=== PATIENT | female | born 1940 | race Caucasian/White ===

== ENCOUNTER 2016-08-12 17:30 | Inpatient (IN) | payer MEDICARE, OTHER ==
[~2016-08-12] VITALS: Ht 157.5 cm; Wt 50.5 kg
--- NOTE | ~2016-08-12 | CON ---
PATIENT'S NAME: AMADOR RACHEL [facility] AGE: 75 Y [address] ROOM: [place] [id number] LOCATION: GICU ADMIT DATE: 08/12/2016 Consultation DISCHARGE DATE: FAMILY PHYSICIAN: PHYSICIAN, UNKNOWN ATTENDING PHYSICIAN: Jan Vilchis DATE OF CONSULTATION: 08/13/2016 CARDIOLOGY CONSULTATION REASON FOR CARDIOLOGY CONSULT: Hypotension and bradycardia. HISTORY OF PRESENT ILLNESS: This is a 75-year-old female, admitted from [facility] for what was believed to be a hypovolemic shock. She initially presented to the emergency department with complaints of weakness and has had decreased oral intake for about a week. The patient was directly admitted to [facility] and was found to be hypotensive and bradycardic. She was subsequently started on the Levophed drip as well as dopamine. At the time of this consult, she continues on the BiPAP and does continue to have complaints of shortness of breath. She denies chest pain or other signs or symptoms suggestive of coronary ischemia. Her cardiac history does include hypertension and atrial fibrillation as well as long-term anticoagulation with Coumadin. 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 She denies chest pressure, dizziness, palpitations, syncope. Overall just states "don't feel well" and her family states she has just had loss of energy recently. PAST MEDICAL HISTORY: 1. Hypertension. 2. Atrial fibrillation, chronic. 3. Long-term anticoagulation with Coumadin. 4. Previous history of failure to thrive about a year ago. 5. Pulmonary hypertension. 6. COPD. 7. Renal failure. 8. Chronic lymphocytic leukemia. 9. Anxiety and depression. FAMILY HISTORY: There is a positive history of cancer. Her father had lung cancer, but also did have heart disease. She also has a sister and a brother with heart disease. SOCIAL HISTORY: PATIENT'S NAME: AMADOR [facility] AGE: 75 Y [address] ROOM: [id number] [place] [id number] LOCATION: GICU ADMIT DATE: 08/12/2016 Consultation DISCHARGE DATE: FAMILY PHYSICIAN: PHYSICIAN, UNKNOWN ATTENDING PHYSICIAN: Jan Vilchis The patient is a former cigarette smoker. She smoked for a total of 50 years. She denies alcohol or illicit drug use. CURRENT MEDICATIONS: 1. Ipratropium bromide and albuterol sulfate inhaled every 4 hours. 2. Dopamine IV drip with titration protocol for bradycardia. 3. Levophed drip IV with titration parameters for blood pressure and hypotension. 4. Rocephin 1 g IV daily. 5. Daliresp 500 mcg p.o. daily. 6. Remeron 30 mg p.o. daily in the evening. MEDICATION ALLERGIES: Sulfadiazine causing hives. REVIEW OF SYSTEMS: A 12-point review of systems evaluated and negative except for those listed in the HPI. DIAGNOSTICS: CMS evaluation shows sodium of 144, potassium 5.6, BUN of 98, creatinine 2.6, and a glucose of 102. CBC evaluation shows a white blood cell count of 17.3, hemoglobin of 7.8, hematocrit 26.8, and a platelet of 217. PT/INR 24.8 and 2.2 respectively. Echocardiogram performed on 08/12/2016 showed an estimated left ventricular ejection fraction of 60%. She has severe mitral regurgitation as well as severe pulmonary hypertension with an RVSP of 70 mmHg. There is presence of a small pericardial effusion as well as pleural effusions. PHYSICAL EXAMINATION: VITAL SIGNS: Temperature 100.2, pulse 79, respirations 16, blood pressure 89/46, O2 saturation 92% on 60% FiO2 per BiPAP. The patient weighs 61.5 kg. SKIN: Pale, but warm and dry. EYES: Sclerae clear. No xanthelasmas. ENT: Oral mucosa is pink and moist. No carotid bruits noted. Does have the presence of jugular venous distention. CHEST: Respirations are even and slightly labored. Lung sounds are coarse throughout with noted expiratory wheeze. HEART: Irregular rate and rhythm. Normal S1, S2. She continues in an atrial fibrillation on a instructor painting. ABDOMEN: Soft and nontender. MUSCULOSKELETAL: Equal muscle strength to upper and lower extremities bilaterally against resistance. EXTREMITIES: Peripheral pulses are palpable. No clubbing or cyanosis noted. Does have trace lower extremity edema present. PATIENT'S NAME: AMADOR [facility] AGE: 75 Y [address] ROOM: [place] [id number] LOCATION: [facility] ADMIT DATE: 08/12/2016 Consultation DISCHARGE DATE: FAMILY PHYSICIAN: PHYSICIAN, UNKNOWN ATTENDING PHYSICIAN: Jan Vilchis PSYCH: Alert and oriented. Mood and affect are appropriate. IMPRESSION AND PLAN: Per Dr. Elena Shook: 1. Hypotension. Currently on IV vasopressor support and do recommend continuing that at this time. 2. Chronic atrial fibrillation with some episodes of bradycardia. 3. Acute kidney injury. 4. Severe pulmonary hypertension. 5. Severe mitral regurgitation. 6. Anemia. 7. Diastolic congestive heart failure, acute, with volume overload. She is currently in a [place] Heart Association Class IV with her noted JVD and fluid overload. We would consider another dose of IV Bumex if her nephrology consult feels it is appropriate. She still appears to be at a mild to moderate fluid overload state. We will continue to monitor and treat appropriately and watch her closely. Of note, she from her echocardiogram appears to be a possible candidate for a mitral clip, and we will continue to follow her as an outpatient for consideration for this procedure. Thank you for this consult. Thank you for allowing [facility] to interact in the care of this patient. CHUY CEDILLO APRN FOR MD SILVIANO FARMER/talita /[id number] d: 08/13/162006 t: 08/26/161720, CONSULTATION REPORT
--- NOTE | ~2016-08-12 | DS ---
PATIENT'S NAME: AMADOR RACHEL [facility] AGE: 75 Y [address] ROOM: [id number] [place], [place] [address] LOCATION: [facility] ADMIT DATE: 08/12/2016 Discharge Summary DISCHARGE DATE: 08/21/2016 FAMILY PHYSICIAN: Apolonia Penn MD ATTENDING PHYSICIAN: Jan Vilchis FINAL DIAGNOSES: 1. Cardiogenic shock. 2. Acute on chronic hypoxic respiratory failure. 3. Atrial fibrillation, bradycardic on admission. 4. Acute kidney injury, on stage 3 chronic kidney disease. 5. Iron-deficiency anemia. 6. Severe mitral regurgitation. 7. Acute congestive heart failure/cor pulmonale. 8. Chronic obstructive pulmonary disease. 9. Severe protein-calorie malnutrition. 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 HISTORY OF PRESENT ILLNESS: For details of admission, please see the history and physical dictated by Dr. Vilchis. LABORATORY DATA: On admission here, sodium 144, discharge 146; potassium on admit 5.7, at discharge 4.3; chloride on admission was 114, discharge 107; CO2 on admission was 19, discharge 34; BUN on admission was 100, discharge 40; creatinine on admission was 2.7, did gradually decline, at discharge was 1.2. Liver enzymes were normal. Phosphorus at discharge was 3. Magnesium at discharge was 2.7. Iron was 30, percent saturation was 10, vitamin B12 was 1014, folate 5.7, ferritin was 31.4. White blood cell count on admission was 16.8, got as high as 20.7, discharge 7.7; hemoglobin on admission was 7.8, she fluctuated throughout the hospital stay, was 6.7 on August 15, 2016, most prior to discharge 7.1. Urinalysis on admission did not show any evidence of infection. Blood cultures, urine cultures, and stool culture were negative. RADIOLOGY STUDIES: Chest x-ray on admission showed evidence of pulmonary congestion. Ultrasound of her abdomen showed that she did have calcified gallbladder wall. She had bilateral pleural effusions. HOSPITAL COURSE: The patient was admitted in, who was a transfer from [facility] to [facility]. She had presented in with shock and was hypotensive and bradycardic. She was admitted into the intensive care unit. She was put on a Levophed drip. Cardiology was asked to see her as well as Nephrology. They did obtain the echo done in [place]. She was felt to be in some degree of congestive heart failure, but due to her acute kidney injury, we managed her with cautious diuresis of IV Bumex. It was known that she had severe mitral regurgitation and significant pulmonary hypertension. She did diurese and then we did give her back albumin. GI was consulted because when she presented to [place], her hemoglobin was 3. It was felt PATIENT'S NAME: AMADOR RACHEL [facility] AGE: 75 Y [address] ROOM: [id number] [place], [place] [address] LOCATION: [facility] ADMIT DATE: 08/12/2016 Discharge Summary DISCHARGE DATE: 08/21/2016 FAMILY PHYSICIAN: Apolonia Penn MD ATTENDING PHYSICIAN: Jan Vilchis that this needed to be further evaluated. The decision was made that she was to have an EGD and colonoscopy on August 18, 2016. Dr. De La Cruz was consulted from oncology standpoint because she did have a history of CLL. Her heart rates did improve, that she could be taken off the Levophed. She had been on Cardizem on admission and this was held. She had been on anticoagulation, which was held as well. 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 Colon was poorly prepped, so the complete colonoscopy could not be performed. She was felt to be safe to be transferred out of the intensive care unit on 08/18/2016, at which time, the hospitalist program did take assume care. Please see the note dictated by Dr. Arlin Goncalves. We continued to monitor. She did seem to be more compensated. Her hemoglobins, however, did seem to continue to fluctuate up and down, her kidney function though continued to improve. On the morning of 08/21/2016, it was discussed with her that she may want to consider repeat colonoscopy with a better prep. She declined this option as she did not want to have another colonoscopy. During the hospitalization, there were extended conversations with her and with her son by numerous physicians discussing the risk of ongoing anticoagulation in light of the fact that not knowing to completely know for sure if she had any colonic abnormality. She did voice understanding of that. Her CHADS2-VASc score was calculated to be 4, which gave her 4.8% risk of having an embolic event. The decision was made to place her on an aspirin. Her and her son did voice understanding of that, and that any further decisions regarding resuming Coumadin would depend upon her hemoglobin. They did agree to have Home Health follow so that laboratory could be obtained. She had been wearing oxygen at home at night prior to admission. Her O2 saturation on room air was 87% on the day of discharge. Therefore, the paperwork was completed for her to have home O2. I did speak with Dr. Penn regarding this discharge. I also spoke with Dr. Cordero. We did discuss the fact that she is not on any antiarrhythmic or rate limiting drugs due to the fact that her heart rates have been in the 70s to 80s off medication. ROSS Matthew RUSH MD LAW/modl /[id number] CC: MD Jan Ramos MD PATIENT'S NAME: AMADOR RACHEL [facility] AGE: 75 Y [address] ROOM: [place] [address] LOCATION: [facility] ADMIT DATE: 08/12/2016 Discharge Summary DISCHARGE DATE: 08/21/2016 FAMILY PHYSICIAN: Apolonia Penn MD ATTENDING PHYSICIAN: Jan Vilchis MD d: 08/21/16 2118 t: 09/03/16 1043, DISCHARGE SUMMARY
--- NOTE | ~2016-08-12 | CON ---
PATIENT'S NAME: AMADOR RACHEL [facility] AGE: 75 Y [address] ROOM: [address] [place], [place] [address] LOCATION: GICU ADMIT DATE: 08/12/2016 Consultation DISCHARGE DATE: FAMILY PHYSICIAN: PHYSICIAN, UNKNOWN ATTENDING PHYSICIAN: Jan Vilchis DATE OF CONSULTATION: 08/13/2016 REASON FOR CONSULTATION: SHER. CHIEF COMPLAINT: SHER and volume overload. HISTORY OF PRESENT ILLNESS: A 75-year-old lady with history of CLL being managed conservatively; atrial fibrillation, on long-term anticoagulation with warfarin; and COPD with chronic hypoxic/hypercapnic respiratory failure with chronic home oxygen dependence, transferred to [facility] with severe anemia and fluid overload. She was not feeling well for the last couple of days. Was severely weak, had an earlier admission with failure to thrive and anorexia as well in 2016. When she went to [facility], she was found to have severe anemia with hemoglobin in the 3 range. She got 2 units of blood transfusion over there as well as got couple of liters of normal saline as her blood pressure was found to be low. However, following that she was severely short of breath and was requiring BiPAP, and the patient was transferred to [facility] for further management and care. As per the paper chart briefly when patient came here, the patient's hemoglobin was 9, however, patient was found to have significant volume overload, and was given 2 mg of Bumex overnight with improvement in her respiratory status slightly, and she made about 1400 mL of urine overnight. During my evaluation, she is still short of breath, was on BiPAP, cannot speak in full sentences. Her blood pressure, however, is really marginal. Blood pressure is ranging from 80 to 100 over 40 to 50. She also has history of severe pulmonary hypertension and severe MR as per the previous echocardiography done at outside hospital. She denied any nausea, vomiting, or diarrhea. Review of the chart shows the creatinine in 2016 was 0.7, and on admission, it was 2.7, improved to 2.6 in the morning. REVIEW OF SYSTEMS: GENERAL: No fever. No chills or rigor. HEENT: No sore throat. No sinus congestion. CVS: No chest pain. Severe exertional shortness of breath. 1+ leg swelling. RESPIRATORY: Significant shortness of breath. Occasional cough. Some wheezing. GENITOURINARY: No pain with urination. No increased frequency. No nocturia. GASTROINTESTINAL: No abdominal pain. No abdominal distention. No nausea or vomiting. NEUROLOGIC: No weakness. No seizures. SKIN: No rash. No itching. ALLERGIES: No seasonal allergy. No hayfever. ENDOCRINE: No heat intolerance. No cold intolerance. PSYCHIATRIC: No sadness. No crying spells. No history of panic attack. PATIENT'S NAME: AMADOR RACHEL [facility] AGE: 75 Y [address] ROOM: [id number] [place], [place] [address] LOCATION: [facility] ADMIT DATE: 08/12/2016 Consultation DISCHARGE DATE: FAMILY PHYSICIAN: PHYSICIAN, UNKNOWN ATTENDING PHYSICIAN: Jan Vilchis PAST MEDICAL HISTORY: 1. COPD with chronic hypoxic/hypercapnic respiratory failure, on home oxygen. 2. Atrial fibrillation. 3. Chronic atrial fibrillation. 4. Severe pulmonary hypertension. 5. Atrial fibrillation, on long-term anticoagulation. 6. Severe MR. PAST SURGICAL HISTORY: Noncontributory. FAMILY HISTORY: Both parents had significant cardiac history. Father of [place] at age 59. Mother in a train accident. Two brothers also who had significant cardiac history. SOCIAL HISTORY: , lives near [place]. A 40 pack-year history of smoking and stopped about 10 years back. No history of alcohol use. HOME MEDICATIONS: 1. Albuterol 1 puff inhaler q.4 hours p.r.n. 2. Alprazolam 0.5 mg daily. 3. Diltiazem ER 180 mg p.o. daily. 4. Fluticasone and salmeterol 1 puff inhalation b.i.d. 5. Ipratropium and albuterol 1 vial inhalation q.6 hours p.r.n. for shortness of breath. 6. Lisinopril 5 mg tablet p.o. daily. 7. Mirtazapine 30 mg p.o. at bedtime. 8. Artificial tears p.r.n. for dry eyes. 9. Roflumilast 500 mcg p.o. daily. 10. Warfarin 5 mg p.o. 4 days a week and 7.5 mg 3 days a week. PHYSICAL EXAMINATION: VITAL SIGNS: Blood pressure 80s to 100s over 40s to 50s, pulse is 76, respiratory rate 18, and saturation 90 to 92% on BiPAP. GENERAL: An elderly female, lying in bed, on BiPAP in significant respiratory distress. HEENT: Positive JVD. No thyromegaly or lymphadenopathy. Moist mucous membranes bilaterally. PERRLA. EOMI. CVS: S1 and S2 plus irregular rate and rhythm. Pansystolic murmur at the apex. No rub. CHEST: Significant rales bilaterally, especially towards the base, occasional wheeze. ABDOMEN: Soft, nontender, and nondistended. Bowel sounds present. EXTREMITIES: No cyanosis, clubbing, or jaundice, 1+ dependent edema. MUSCULOSKELETAL: No limitation of range of motion. SKIN: No pallor, cyanosis, or icterus. BAND TUMBLER: Alert and oriented x3. Makes logical conversation. No gross focal neurological deficits. PATIENT'S NAME: AMADOR RACHEL [facility] AGE: 75 Y [address] ROOM: [place] [address] LOCATION: [facility] ADMIT DATE: 08/12/2016 Consultation DISCHARGE DATE: FAMILY PHYSICIAN: PHYSICIAN, UNKNOWN ATTENDING PHYSICIAN: Jan Vilchis ASSESSMENT AND PLAN: 1. Acute kidney injury, possibly cardiorenal syndrome type 1 with significant volume overload and decompensated heart failure. The patient has history of severe pulmonary hypertension and significant mitral regurgitation in the past which possibly has predisposed her to get into volume overload with 2 units of PRBCs and some volume resuscitation given at outside hospital. The patient got slightly better with 2 mg of Bumex overnight. We will give another 2 mg of Bumex this morning along with metolazone 5 mg orally, and we will closely monitor the urine output and renal function at this point. The patient's blood pressure is from marginal, will possibly need a vasopressor therapy especially with diuretic treatment. 2. Decompensated heart failure, currently fluid overloaded. Cardiology on board. Has significant pulmonary hypertension and mitral regurgitation in the past. We will continue diuresing her and rest as per Cardiology. 3. Atrial fibrillation, on long-term chronic anticoagulation. We will defer the management as per Cardiology. 4. Hypertension. We will hold lisinopril for now. Blood pressure is marginal. We will hold the diltiazem as well. The patient will be diuresed for now. May need vasopressor therapy to support hemodynamics during diuresis. 5. The patient has been educated about her renal failure and her current renal function. Avoid nephrotoxins. Maintain hemodynamic stability to mean arterial pressure of at least more than 60. No NSAIDs or any rash dasia at this point. Thank you for allowing me to participate in this patient's care. We will closely monitor the patient's progress along with you. JORDANEKH JONY MCMILLAN MD /modl /[id number] d: 08/13/161758 t: 08/15/162133, CONSULTATION REPORT
--- NOTE | ~2016-08-12 | CON ---
PATIENT'S NAME: KIMBERLEY RACHEL [facility] AGE: 75 Y [address] ROOM: [id number] [place], [place] [address] LOCATION: [facility] ADMIT DATE: 08/12/2016 Consultation DISCHARGE DATE: FAMILY PHYSICIAN: PHYSICIAN, UNKNOWN ATTENDING PHYSICIAN: Jan Vilchis REFERRING PHYSICIAN: CULLEN SOLIMAN MD This is a consult to Dr. Vilchis. Kimberley Rachel is a 75-year-old woman with chronic lymphocytic leukemia and profound uncharacterized anemia. HISTORY OF PRESENT ILLNESS: History of present illness is obtained from the patient whose history is of dubious veracity; her son; review of the records forwarded by our colleagues in [place]; and review of the current and old [facility] record. There may be some lacuna in our knowledge. Mrs. Rachel was in her normal state of health until early August 2016. [place] [facility]. The patient had worn chronic oxygen at night and had always worn oxygen for 3 to 4 years. The patient has not needed a cane or a walker. She has chronic orthopnea and has to prop herself up with pillows at night. She developed dyspnea on exertion if she walked 100 yards. However, she could walk through the grocery store, clean the house, cook, clean, drive, and garden. In early August 2016, the patient became fatigued and anorexic. She developed progressive wheezing. Her chronic cough productive of a tablespoon per day of yellowish sputum increased. The patient developed tremors and rigors and could not walk. She called her son, who transported her to the emergency room in [place], [place]. On 08/11/2016, in the [facility], the white blood cell count was 10,500 with 47% segs and 43% lymphocytes, the hemoglobin was 3.3 g/dL, the MCV 86, and the platelets 257,000. A general chemical profile was remarkable for a potassium of 6.1 mEq/L, a BUN of 115 mg/dL, a creatinine of 3 mg/dL, an albumin of 2.6 g/dL, and a NT-proBNP of 4555 pg/mL. The iron was 13, the TIBC was 361 mcg per dL, and the percentage saturation was 4%. The ferritin was 23 ng/mL. The TSH was 3.447 uIU/mL. The urinalysis was unremarkable. The patient received 2 units of packed red blood cells and her hemoglobin kane to 5.1 g/dL. The patient was transferred to the [facility] on Dr. Vilchis, Pulmonary Service. At the [facility], the urinalysis was just remarkable for 250/ul of blood, there were PATIENT'S NAME: KIMBERLEY RACHEL [facility] AGE: 75 Y [address] ROOM: [id number] [place], [place] [address] LOCATION: [facility] ADMIT DATE: 08/12/2016 Consultation DISCHARGE DATE: FAMILY PHYSICIAN: PHYSICIAN, UNKNOWN ATTENDING PHYSICIAN: Jan Vilchis 10-20 rbc's per high power field, and 0-2 wbc's per high-power field with rare bacteria. A Dowling catheter was in place. The white count was 16,800, the hemoglobin was 7.8 g/dL, the MCV was 90, and the platelets were 247,000. The patient had 46% segs and 50% lymphocytes. The CMS revealed the potassium was 5.7 mEq/L, the BUN was 100 mg/dL, creatinine 2.7 G/dL. The albumin was 2.9 g/dL. The estimated GFR was 17 mL/min. The patient has gradually improved. Nephrology and Cardiology have been involved in her care. The patient's vital signs have been stabilized. The shock has been stabilized since her admission. Intravenous vasopressors were initiated as were diuretics for her diastolic congestive heart failure. Her acute kidney failure was felt to be due to a cardiorenal syndrome with decompensated heart failure. Mrs. Rachel has chronic lymphocytic leukemia, which was first documented in early 2014. The patient was seen at the [facility] in October of 2014. The patient has not required any treatment for her chronic lymphocytic leukemia. The patient is unaware she has been anemic and does not know what the anemia has been attributed to. Review of the old records reveals that on 08/21/2015, when the patient was hospitalized at [facility], the white count was 10,000, the hemoglobin 9, the MCV 95, the platelets 179,000 with 33% segs, and 32% lymphocytes. ACTIVE MEDICAL PROBLEMS (CHRONIC AND DIAGNOSED): 1. CLL, first diagnosed in 2014. The patient has been seen in Hematology- Oncology consultation at the [facility] in [place] in October of 2014 and no therapy has been recommended. The patient does not know if any tests were done to gauge her prognosis and does not recall returning to [place] for surveillance. 2. Severe pulmonary hypertension, moderate tricuspid regurgitation, severe right and left atrial dilation noted on echocardiogram on 12/18/2001. 3. Atrial fibrillation with controlled ventricular response is noted in 2001. 4. Chronic obstructive lung disease noted in 2016. This was hypoxemic and hypercarbic respiratory failure. The patient has used oxygen at night more recently and has used continuous oxygen for 3 to 4 years. 5. Anxiety/depression. 6. Porcelain gallbladder noticed in 2016. The patient was too fragile to be a surgical candidate. 7. 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 8. Tobacco use. The patient smoked 1 pack per day of [employer] cigarettes but has abstained since 2006. 9. Minimal splenomegaly. The spleen was 11.74 on an ultrasound of the abdomen today. PATIENT'S NAME: KIMBERLEY RACHEL [facility] AGE: 75 Y [address] ROOM: [id number] [place], [place] [address] LOCATION: [facility] ADMIT DATE: 08/12/2016 Consultation DISCHARGE DATE: FAMILY PHYSICIAN: PHYSICIAN, UNKNOWN ATTENDING PHYSICIAN: Jan Vilchis ACUTE MEDICAL ILLNESS (RESOLVED) PAST SURGERIES, INJURIES: 1. [id number]: G2, P2, AB2. 2. 1996 - Left humerus fracture. The patient did not report to a physician for evaluation. 3. 2013 - Bronchoscopy. 4. 2011 - Right and left cataract extraction. 5. 2014 - Hospitalization for cellulitis and chronic obstructive lung disease exacerbation and pneumonia. 6. 06/2016 - Retinal hemorrhage. MEDICATIONS UPON ADMISSION: 1. Albuterol. 2. Alprazolam. 3. Diltiazem. 4. Fluticasone/salmeterol inhaler. 5. Ipratropium/albuterol sulfate inhaler. 6. Lisinopril. 7. Mirtazapine. 8. Artificial tears. 9. Roflumilast. 10. Warfarin. ADVERSE REACTIONS TO MEDICATIONS, TRANSFUSIONS, ALLERGIES: 1. Sulfadiazine led to urticaria. 2. The patient recently had packed red blood cells transfusions in [place] [facility] but never before. TOBACCO: Abstain since 2006, one pack per day of Adilson for 45 years prior to that. ALCOHOL: One beer a month. CAFFEINE: None. IMMUNIZATIONS: 1. Positive influenza virus vaccine. 2. Positive pneumococcal vaccine. 3. Positive tetanus toxoid booster. 4. Negative varicella zoster virus vaccine. FAMILY HISTORY: Negative for cancer or hematologic disorders. PATIENT'S NAME: KIMBERLEY RACHEL [facility] AGE: 75 Y [address] ROOM: [id number] [place], [place] [address] LOCATION: [facility] ADMIT DATE: 08/12/2016 Consultation DISCHARGE DATE: FAMILY PHYSICIAN: PHYSICIAN, UNKNOWN ATTENDING PHYSICIAN: Jan Vilchis SOCIAL HISTORY: The patient was born in [place], [place], [place] [facility] [place]. She graduated from high school in [place]. 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 The patient is . She is retired. She has a son in [place], who is disabled, and another son in [place]. REVIEW OF SYMPTOMS: The patient had about one week of diarrhea and some heartburn. She had mild nocturia and rare incontinence. PHYSICAL EXAMINATION: VITAL SIGNS: Pulse 84 and regular, blood pressure 100/50, respiratory rate 18, temperature 98.9, height 62 inches, weight 65 kg (143 pounds), BMI 26.2 kg/m2. GENERAL: A well-developed, cachectic, 75-year-old, female, in no acute distress, oxygen by nasal cannula is being administered. HEENT: Edentulous. LYMPH NODES: None palpable. NECK: Without JVD or carotid bruits. SKIN: Chan angiomas. CHEST: Decreased breath sounds bilaterally. CV: Decreased S1, S2. No murmurs, bruits, or adventitious sounds. BREASTS: No masses. ABDOMEN: No masses, tenderness, or organomegaly. GENITALIA AND RECTAL: Dowling catheter in place. EXTREMITIES: Compression device in place on both legs. Bony deformity left humerus. IMPRESSION: 1. A 75-year-old woman with a history of chronic lymphocytic leukemia, apparently early and never treated, prognostic markers unknown, presents for evaluation and therapy of profound anemia associated with fatigue and transient diarrhea. The hemoglobin was 3.3 g/dL and indices were normocytic, though the MCH and MCHC were low. The anemia was present (9 g/dL) on 08/21/2015. The patient has an estimated GFR consistent with chronic kidney disease 4 on admit, down from the GFR of 60 mL/minute last year. The patient has chronic protein-calorie malnutrition, minimal echogenicity throughout the right renal cortex of questionable significance, porcelain gallbladder, (known for 1 year but not felt to be a physiologic surgical candidate). There is no evidence of an antibody on blood typing. 2. Normocytic anemia, cause still unclear. 3. Anemia, seems out of proportion to the chronic lymphocytic leukemia, and there is no evidence of a warm antibody on blood typing. RECOMMENDATIONS: PATIENT'S NAME: KIMBERLEY RACHEL [facility] AGE: 75 Y [address] ROOM: [id number] [place], [place] [address] LOCATION: [facility] ADMIT DATE: 08/12/2016 Consultation DISCHARGE DATE: FAMILY PHYSICIAN: PHYSICIAN, UNKNOWN ATTENDING PHYSICIAN: Jan Vilchis Diagnostic: 1. Hemoccult testing of the stools x3. 2. CBC with reticulocyte count. 3. ESR. 4. LDH. 5. Vitamin B12. 6. Folate. 7. Iron/TIBC. 8. Ferritin. 9. Prealbumin. 10. The profiling machine setup operator has been consulted. In a patient this age, with this degree of cachexia, and this degree of anemia, endoscopy studies are warranted even if the stools are Hemoccult negative. TREATMENT: No change at this point. PATIENT EDUCATION: 1. Made the point it is not clear from the current information why she has anemia. 2. Made the point, it is unlikely her anemia is related to her chronic lymphocytic leukemia. We will get the records from our colleagues at the [facility] in [place], [place]. MD PAGE OBRIENB/modl /[id number] CC: MD Elena Mariee MD Atam Mehdiratta, MD Apolonia L Shackleton, MD d: 08/17/16 0225 t: 08/18/16 1252, CONSULTATION REPORT
--- NOTE | ~2016-08-12 | HP ---
PATIENT'S NAME: AMADOR RACHEL [facility] AGE: 75 Y [address] ROOM: [id number] [place], [place] [address] LOCATION: [facility] ADMIT DATE: 08/12/2016 History & Physical DISCHARGE DATE: FAMILY PHYSICIAN: PHYSICIAN, UNKNOWN ATTENDING PHYSICIAN: Jan Vilchis DATE OF SERVICE: 08/18/2016 CONSULTATION/HISTORY AND PHYSICAL The Hospitalist Service was consulted by Dr. Ch to assume primary attending. HISTORY OF PRESENT ILLNESS: Ms. Rachel is a 75-year-old female, who was admitted here after transfer from [facility]. She presented there after a couple of weeks of significant weakness with decreased oral intake for at least a week also. When she arrived there, she was extremely anemic with a hemoglobin of 3. She was transfused with 2 units of packed red cells. She was also given IV fluid boluses for low blood pressure. She arrived here at [facility]. Dr. Vilchis admitted her to the ICU with hypotension and atrial fibrillation with slow ventricular response. She was given dopamine and Levophed. Since she has been in the hospital, there was a consult of Cardiology. On echocardiogram done at [place] on 08/12/2016, she had severe mitral regurgitation, severe pulmonary hypertension with a right ventricular systolic pressure of 70, small pericardial effusion as well as pleural effusions. Because of her hypotension, she was continued on vasopressin, however, she was also fluid overloaded with chronic atrial fibrillation at low heart rate. Dr. Mark of Nephrology was consulted. She has been treated with diuretics cautiously because of her elevated creatinine, which was a maximum of about 2.7. At one point, diuretics were held in favor of giving some albumin. However, she remained severely dyspneic and loop diuretics were resumed. Her renal function is improving and Dr. Mark continues to follow her. Dr. Rodriguez of Gastroenterology was consulted around August 14 for her severe anemia and she will go for an EGD this morning. Her iron studies were obtained after transfusion here on August 15, but did show iron of 30, TIBC 290, and iron saturation of 10%. LDH was 127. Her vitamin B12 was greater than 1000. Folate was 5.7. She apparently has never had a colonoscopy in the past and has a history of calcified gallbladder. Gallbladder ultrasound here does show gallstones in the liver, bile ducts visualized, head and body of the pancreas and left kidney were normal in that study. 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 I PATIENT'S NAME: WILSON [facility] AGE: 75 Y [address] ROOM: [id number] [place], [place] [address] LOCATION: [facility] ADMIT DATE: 08/12/2016 History & Physical DISCHARGE DATE: FAMILY PHYSICIAN: PHYSICIAN, UNKNOWN ATTENDING PHYSICIAN: Jan Vilchis will discuss the findings of the EGD and gallbladder ultrasound with Dr. Rodriguez after her test, for which she has gone down for at this time. Hematology/Oncology was consulted also around 08/14/2016 for her history of chronic lymphocytic leukemia. Prior to this, she has not received any chemotherapy and CLL has been relatively benign. She thinks she may have had this for about 8 years. The patient reports to me that she is still dyspneic on exertion at this time. She reports that she has had about 40-pound weight loss in the past 6 months. During this hospitalization since August 12, she has had minimal p.o. intake. She had been started on clears and the last night she reports she did have some cereal. Her prealbumin on 08/17/2016 was 11. PAST MEDICAL HISTORY: 1. Chronic lymphocytic leukemia. 2. Chronic kidney disease. 3. COPD with O2 requirement at home for the past 3 to 5 years. 4. Pulmonary hypertension. 5. Anxiety. 6. Failure to thrive. 7. Atrial fibrillation, on chronic warfarin therapy. 8. Depression. 9. Smoker. She has approximately 50 pack year history of smoking. She thinks she quit around age 65, although she is unclear about that. 10. Iron deficiency anemia. PAST SURGICAL HISTORY: Bronchoscopy for unclear reasons. Again, no history of GI endoscopies, upper or lower. SOCIAL HISTORY: Approximately [id number] history of smoking. No illicit drug use. Homeless is as documented in the chart. FAMILY HISTORY: Father with lung cancer, but of heart attack. Her mother had heart disease, but in an accident. ALLERGIES: SULFASALAZINE. MEDICATIONS: Her current medications include; 1. Remeron 30 mg at h.s. PATIENT'S NAME: WILSON [facility] AGE: 75 Y [address] ROOM: [id number] [place], [place] [address] LOCATION: [facility] ADMIT DATE: 08/12/2016 History & Physical DISCHARGE DATE: FAMILY PHYSICIAN: PHYSICIAN, UNKNOWN ATTENDING PHYSICIAN: Jan Vilchis 2. Natural Tears both eyes p.r.n. 3. Daliresp 500 p.o. daily. 4. ProAir inhaler q.4 hours p.r.n. 5. DuoNebs 4 times a day. 6. Rocephin 1 gram daily, tonight's dose will be #7. REVIEW OF SYSTEMS: As in the HPI. She has had significant weight loss, fatigue, weakness, and decrease intake. She has had significant swelling and also had somewhat of a chronic cough, but no purulent sputum at this time. The remainder of 10-point review of systems is positive for chronic depression, but no increase recently. No other positive findings at this time. PHYSICAL EXAMINATION: VITAL SIGNS: Temperature 98.6, pulse 79, respirations 20, and blood pressure 99/54, at 3 a.m. it was 102/57. GENERAL: This is a cachectic, pale, and ill-appearing elderly female, who appears comfortable, resting in a chair in her ICU room. HEENT: Normocephalic and atraumatic. She has significant temporal wasting. She is wearing glasses. Her pupils are slightly unequal with both being postsurgical, the right is slightly greater than the left. Lens implants apparent. The palpebral conjunctivae are pale without exudate. Oropharynx is clear with moist mucous membranes. There are upper and lower dentures. NECK: Supple without lymphadenopathy or thyromegaly. LUNGS: Clear to auscultation and percussion except for diminish in the bases, right greater than left with dullness to percussion also on the base of right greater than left. There is no wheezing or other adventitious sound appreciated. CARDIOVASCULAR: Regular rate and rhythm with no appreciable murmur, rub, or gallop. ABDOMEN: Little bit doughy, full, but soft. Normoactive bowel sounds. Nontender. No tenderness in the right upper quadrant. No masses appreciated. EXTREMITIES: No cyanosis, clubbing, or edema. She has 1 to 2+ posterior tibialis pulses that are equal bilaterally. There are SCDs in place bilaterally. SKIN: Warm. Dry. She has some open comedones on her face, not other significant rash. EXTREMITIES: She has significant muscle wasting of upper and lower extremities. Motor strength appears to be normal and symmetric both in the upper and lower extremities. NEURO: Her affect is normal. She is alert and oriented to person, place, and time. LABORATORY DATA: From today. Sodium 147, potassium 4.3, chloride 108, CO2 of 29, BUN is 37, PATIENT'S NAME: AMADOR RACHEL [facility] AGE: 75 Y [address] ROOM: [id number] [place], [place] [address] LOCATION: [facility] ADMIT DATE: 08/12/2016 History & Physical DISCHARGE DATE: FAMILY PHYSICIAN: PHYSICIAN, UNKNOWN ATTENDING PHYSICIAN: Jan Vilchis creatinine 1.3, and glucose is 69. White blood cell 7.7, hemoglobin 7.9, hematocrit 28.2, platelets 126,000, absolute neutrophil count of 3.2, 42% granulocytes, 52% lymphocytes, and 4% monos. Her stool for Hemoccult was positive on the 12th and on the 12th she had a prealbumin of 11. Iron studies as above in the HPI. Ultrasound as above in the HPI. ASSESSMENT AND PLAN: This is a chronically ill 75-year-old female with a long history of smoking. 1. Admitted with shock and valvular congestive heart failure. Her shock is resolved. 2. Severe mitral regurgitation, evaluated congestive heart failure, this is improving on daily doses of diuretics. She will need outpatient evaluation for her MR. Cardiology consult is appreciated. 3. Chronic atrial fibrillation, on chronic anticoagulation therapy. Anticoagulation therapy has been held during the hospitalization due to her severe anemia as was her rate control with her episodes of bradycardia. She was treated with digoxin earlier in the hospitalization. She is not getting this on a daily basis at this time. 4. Chronic obstructive pulmonary disease with chronic oxygen requirement and dyspnea. She continues on roflumilast 500 mcg p.o. daily. We will continue this; she is still on O2 via nasal cannula; she is stable in terms of her chronic obstructive pulmonary disease. 5. Severe anemia, the cause of which is not apparent right now thus her diagnostic workup with EGD and colonoscopy. We will have to have pursue issue of gallbladder malignancy, which I will discuss with Dr. Rodriguez and consider a surgical consult. 6. Chronic lymphocytic leukemia. I appreciate the Oncology consult. We will continue to monitor her counts, right now her lymphocyte count is elevated, but she has a normal total white count. She is asymptomatic in this regard. 7. Severe protein-calorie malnutrition- Add supplements, nutrition consult. 8. Deep vein thrombosis prophylaxis with SCDs, which are in place. DISPOSITION: She will be transferred to [facility] when there is a bed available. Thank you very much for inviting me to participate in the care of this kind lady. ARON LATIF MD LM/talita PATIENT'S NAME: AMADOR RACHEL [facility] AGE: 75 Y [address] ROOM: [id number] [place] [address] LOCATION: [facility] ADMIT DATE: 08/12/2016 History & Physical DISCHARGE DATE: FAMILY PHYSICIAN: PHYSICIAN, UNKNOWN ATTENDING PHYSICIAN: Jan Vilchis /[id number] D: [id number] T: [id number] HISTORY & PHYSICAL
--- NOTE | ~2016-08-12 | CON ---
PATIENT'S NAME: AMADOR RACHEL [facility] AGE: 75 Y [address] ROOM: [id number] [place] [address] LOCATION: GICU ADMIT DATE: 08/12/2016 Consultation DISCHARGE DATE: FAMILY PHYSICIAN: PHYSICIAN, UNKNOWN ATTENDING PHYSICIAN: Jan Vilchis DATE OF CONSULTATION: 08/15/2016 REFERRING PHYSICIAN: CULLEN SOLIMAN MD REASON FOR CONSULTATION: Anemia. HISTORY OF PRESENT ILLNESS: This is a very pleasant 75-year-old female, who was admitted from [facility] for what was believed to be hypovolemic shock. The patient presented to the outside emergency room facility with complaints of weakness and dehydration. The patient was found to be hypotensive and bradycardic. She was admitted to intensive care for blood pressure support. The patient does have a cardiac history including hypertension as well as atrial fibrillation, on long-term anticoagulation being Coumadin. The patient also states that she has a history of iron deficiency anemia, though denies any workup including upper endoscopy or colonoscopy. The patient denies any chest pain, chest pressure, shortness of breath, fever, chills, night sweats, or weight loss. She does state that she has had "loss of energy and generally "does not feel well." We were asked to see in consultation for her anemia. PAST MEDICAL HISTORY: Hypertension, atrial fibrillation, chronic on long-term anticoagulation being Coumadin, previous history of failure to thrive, pulmonary hypertension, COPD, renal failure, chronic lymphocytic leukemia, anxiety and depression, history of calcified gallbladder. PAST SURGICAL HISTORY: Lung surgery. No history of upper endoscopy or colonoscopy. SOCIAL HISTORY: The patient is a former cigarette smoker. Denies any alcohol or illicit drug use. FAMILY HISTORY: Positive history for cancer. The patient's father had lung cancer and heart disease. The patient's sister and brother both have heart disease. ALLERGIES: SULFADIAZINE. CURRENT MEDICATIONS: PATIENT'S NAME: AMADOR RACHEL [facility] AGE: 75 Y [address] ROOM: [id number] [place] [id number] LOCATION: GICU ADMIT DATE: 08/12/2016 Consultation DISCHARGE DATE: FAMILY PHYSICIAN: PHYSICIAN, UNKNOWN ATTENDING PHYSICIAN: Jan Vilchis Please refer to the medication administration record. REVIEW OF SYSTEMS: A 10-point review of systems was completed. All were negative except for those identified in the history of present illness. PHYSICAL EXAMINATION: GENERAL: A pleasant, 75-year-old female, who appears to be in no acute distress. VITAL SIGNS: Temperature 97.7, pulse of 92, respirations 20, blood pressure 94/45, oxygen saturations 92% on 3 L nasal cannula. SKIN: [place], warm, and dry. No jaundice. HEENT: Head is normocephalic and atraumatic. Pupils are equal, round, and reactive to light. Sclerae are clear. Nonicteric. Oral mucosa is pink and moist. No thyromegaly. NECK: Soft and supple. CARDIOVASCULAR: Regular, normal S1, S2. RESPIRATORY: Respirations even and unlabored. LUNGS: Clear to auscultation. ABDOMEN: Soft, round, nontender, nondistended. Bowel sounds positive x4 quadrants. MUSCULOSKELETAL: No muscle weakness or atrophy. EXTREMITIES: No clubbing or cyanosis. NEUROLOGICAL: Grossly nonfocal. LABORATORY DATA AND DIAGNOSTICS: White blood cell count 9.2, hemoglobin on admission was 7.8 with a decrease this morning at 6.7, hematocrit of 23.5, platelet of 141. Chemistry panel includes a glucose of 69, BUN of 63, creatinine 1.7, sodium 148, potassium 4.9, chloride 114, CO2 of 25, calcium of 7.6, albumin 2.4, AST 11, ALT of less than 10, alkaline phosphatase of 61, total bilirubin 0.5, magnesium 2.9. Pro- time 17.7, INR is 1.6. ASSESSMENT AND PLAN: Again, this is a very pleasant 75-year-old female, who was recently admitted with questionable hypovolemic shock. The patient has been doing well, though we were asked to see in consultation for anemia. 1. The patient endorses a history of iron deficiency anemia. At this time, we will recommend to undergo an upper endoscopy and colonoscopy for further evaluation of GI causes of anemia. This will be completed as the patient will be given preparation for the procedure. Continue monitoring the patient's hemoglobin and hematocrit daily is also recommended. Further recommendations to be given status post upper endoscopy and colonoscopy. 2. Calcified gallbladder. In review of the patient's record, she does have PATIENT'S NAME: AMADOR RACHEL [facility] AGE: 75 Y [address] ROOM: [id number] [place], [place] [address] LOCATION: [facility] ADMIT DATE: 08/12/2016 Consultation DISCHARGE DATE: FAMILY PHYSICIAN: PHYSICIAN, UNKNOWN ATTENDING PHYSICIAN: Jan Vilchis a history of calcified gallbladder. This does have increased risk of gallbladder cancer. We will be scheduling an abdominal ultrasound for further evaluation of the patient's gallbladder. Further recommendations to be made after receipt of the abdominal ultrasound. Thank you for this consult and allowing us to participate in the care of this patient. We will continue to monitor, evaluate, and treat as appropriate. MARY CHOI APRN FOR MD EDWIN LIRA/modl /[id number] d: [id number]/15/[id number] t: 08/24/16 1031, CONSULTATION REPORT
--- NOTE | ~2016-08-12 | CON ---
PATIENT'S NAME: WILSON [facility] AGE: 75 Y [address] ROOM: [place] [id number] LOCATION: GICU ADMIT DATE: 08/12/2016 Consultation DISCHARGE DATE: FAMILY PHYSICIAN: , AGUSTIN ATTENDING PHYSICIAN: Jan Vilchis REASON FOR ADMISSION: Shock. HISTORY OF PRESENT ILLNESS: This is a 75-year-old white female, who apparently had an episode of weakness today, she could not walk, she could not breathe, so she presented to the [facility] last night, upon her arrival to the emergency department, the patient was found to have low hemoglobin at 3. The patient does have a history of CLL, COPD, she was admitted to the hospital and she was transfused and once she was given fluid, but she continues to be hypotensive, and subsequently, the patient was started on IV fluids. Her hemoglobin did increase appropriately, but her blood pressure continued to be low, and heart rate was going lower and lower, and subsequently, the patient was transferred here for higher level of care. Upon arrival, the patient was hypotensive, her systolic was in the 70s. She denies any chest pain, pleurisy, hemoptysis, nausea, vomiting, abdominal pain. She denied any blood, nose bleed, hematochezia. She also has a history of COPD and she was hypoxic. Her chest x-ray was reviewed, which revealed bilateral pleural effusions and cardiomegaly. The patient also had labs at the other hospital, which revealed an increased creatinine of 2.6 with a based creatinine of 1.2. PAST MEDICAL HISTORY: 1. Chronic lymphocytic leukemia. 2. Chronic renal failure. 3. Chronic COPD. 4. Pulmonary hypertension. 5. Anxiety. 6. Failure to thrive. 7. Atrial fibrillation, rate controlled with anticoagulation. 8. Depression. FAMILY HISTORY: Her father had CA of the lung and he also had heart disease, her sister and her brother had heart disease too. She has a history of bronchoscopy in 2015, which is I am not quite sure why. PATIENT'S NAME: WILSON [facility] AGE: 75 Y [address] ROOM: [address] [address] LOCATION: GICU ADMIT DATE: 08/12/2016 Consultation DISCHARGE DATE: FAMILY PHYSICIAN: PHYSICIAN, UNKNOWN ATTENDING PHYSICIAN: Jan Vilchis SOCIAL HISTORY: She is an ex-smoker. She has a history of 60 pack year, she does not have history of alcohol or substance abuse. REVIEW OF SYSTEMS: A 10-point review of system was done and otherwise negative, other than those mentioned in the history of presenting illness. ALLERGIES: SHE IS ALLERGIC TO SULFADIAZINE, WHICH CAUSES HIVES. CURRENT MEDICATIONS: 1. Alprazolam. 2. Daliresp. 3. DuoNeb. 4. Rocephin. 5. Zithromax. 6. Diltiazem. 7. Ferrous sulfate. 8. Lisinopril. 9. Mirtazapine. PHYSICAL EXAMINATION: GENERAL: Upon initial evaluation, the patient is lying in bed, comfortable, does not appear in acute distress. VITAL SIGNS: Include a blood pressure of 75/45, heart rate was 50, respiratory rate of 25, and SpO2 of 94% on bilevel ventilation. EYES: Nonicteric. Pupils equal, reactive to light and accommodation. NECK: Supple. No lymphadenopathy. No jugular venous distention. LUNGS: Good bilateral air entry with decreased air entry at the bases. HEART: S1, S2. No murmurs, rubs, or gallops. ABDOMEN: Soft, nontender, no palpable organs. EXTREMITIES: No edema, clubbing, or cyanosis. LABORATORY DATA: At the other facility revealed a white cell count of 8.9, hemoglobin level of 5.1, and hematocrit of 86.3. Her SpO2 was 109, her systolic was 69. Her BUN was 105, her creatinine was 2.8, her glucose level was 126, potassium was 5.9, and chloride level was 109. Her UA was negative. Calcium level was 7.3, her alkaline phosphatase was 68, total bilirubin 0.2, ALT and AST was within normal range, her proBNP is 4500, her ferritin is 23. PATIENT'S NAME: AMADOR RACHEL [facility] AGE: 75 Y [address] ROOM: [id number] [place], [place] [address] LOCATION: [facility] ADMIT DATE: 08/12/2016 Consultation DISCHARGE DATE: FAMILY PHYSICIAN: PHYSICIAN, UNKNOWN ATTENDING PHYSICIAN: Jan Vilchis A 2D echo that was done in 2014, revealed severe pulmonary hypertension and right ventricular systolic pressure LA volume index, bilateral atrial enlargement with an EF of 55%. IMPRESSION: 1. Shock at the current point. I understand where her shock is coming from, but this is most likely a cardiogenic shock, the patient is bradycardic and hypotensive with no significant lactate, there is no significant fever. Her bedside ultrasound and cardiac ultrasound revealed decreased cardiac function in the 40s with very dilated IVC and fluid overload and the patient is not even hyperdynamic. 2. At the current point, the patient has bradycardia and atrial fibrillation. We will start the patient on dopamine, there is a possibility that the patient has overdosed on Cardizem. 3. Acute kidney injury, acute on chronic and anuria basically secondary to hypotension and hypoperfusion, we will maintain a systolic MAP above 65. 4. Anemia, starting hemoglobin of 3. The patient has a hemoglobin of 3, it does not appear in acute GI bleed. At the current point, although it could be a bleed somewhere, the patient is on Coumadin, we will check her PT/INR and we will also follow up with her hemoglobin. Her hemoglobin after the transfusion is 7.8, after appropriate transfusion, she is responding appropriately, after that she is not actively bleeding. The lab results here in [place], her white cell count was 16.9, hemoglobin was 7.9, and hematocrit was 27.0, her further labs are still pending. 5. GI and DVT prophylaxis. 6. We will also obtain blood cultures. 7. We will continue her antibiotics. 8. I would consult Nephrology. 9. I would consult with Cardiology. 10. I will follow up with her primary care physician. Thank you for allowing me to participate in the care of this patient. I have spent 85 minutes in critical care time of this patient. MD JOLENE CALDERÓN/talita /[id number] d: 08/13/16 0254 t: 09/01/16 1632, CONSULTATION REPORT
[~2016-08-12 17:30] MED LIST: ADVAIR 500-501 EACH INH; COUMADIN ** IA5 MG PO; DELTASONE5 MG PO; DILTIAZEM ER180 M1 PO; DUONEB INH; FEOSOL325 MG PO; K-TAB ER20 MEQ PO; LASIX40 M1 PO; LASIX40 MG PO; LOVENOX 6060 MG/0.6 SUB-Q; MUCUS RELIEF600 MG PO; PRINIVIL (ZESTRI5 MG PO; PROAIR RESPICL90 MCG INH; REMERON 30 MG30 MG PO; ZOLOFT50 MG PO
[2016-08-12 19:29] LABS: HEMOGLOBIN 7.8 g/dL (10.0-15.0); MCH 26.1 pg (27.0-34.0); MCHC 28.9 gm/dL (32.0-36.5); MCV 90.3 fl (83.0-98.0); MPV 11.6 fl (9.4-12.4); PLATELET COUNT 247 K/uL (150-450); RBC 2.99 M/uL (3.50-5.50); RDW-CV 16.8 % (11.9-14.6); WBC 16.8 K/uL (4.0-11.0)
[2016-08-12 19:48] LABS: ALBUMIN 2.9 gm/dL (3.5-5.0); CREATININE 2.7 mg/dL (0.5-1.1); TOTAL BILIRUBIN 0.4 mg/dL (0.0-1.5); TOTAL PROTEIN 6.3 g/dL (6.0-8.4)
[2016-08-12 19:53] LABS: ABSOLUTE NEUTROPHIL CT (ANC) 7.7 K/uL (1.8-7.8); LYMPHOCYTE # 8.4 K/uL (0.8-4.0); LYMPHOCYTE % 50 %; MONOCYTE # 0.7 K/uL (0.0-1.0); SEGMENTED NEUTROPHIL # 7.7 K/uL (1.8-7.8); SEGMENTED NEUTROPHIL % 46 %
[2016-08-12 19:55] LABS: ANION GAP 16.7 (10.0-19.0); CALCIUM 6.9 mg/dL (8.5-10.5); POTASSIUM 5.7 mMol/L (3.7-5.1)
[2016-08-12] MEDS ORDERED: XANAX0.5 MG PO (20:02)
[2016-08-12] MEDS ORDERED: COUMADIN ** IA5 MG PO (20:02)
[2016-08-12] MEDS ORDERED: DALIRESP500 MCG PO (20:03)
[2016-08-12] MEDS ORDERED: ARTIFICIAL TEAR15 ML OPHTH (20:03)
[2016-08-12 20:43] LABS: INR - (THERAPEUTIC) 2.2 (0.9-1.1); PROTIME 24.8 SECONDS (9.6-11.1)
[2016-08-12 21:50] LABS: BILIRUBIN URINE NEGATIVE (NEGATIVE); BLOOD URINE 250 /UL (NEGATIVE); COLOR URINE YELLOW (YELLOW); GLUCOSE URINE NEGATIVE (NEGATIVE); KETONE URINE NEGATIVE (NEGATIVE); LEUKOCYTES URINE NEGATIVE /UL (NEGATIVE); NITRITE URINE NEGATIVE (NEGATIVE); PROTEIN URINE 30 mg/dL (NEGATIVE); SPEC GRAVITY URINE 1.015 (1.003-1.035); TURBIDITY URINE 1+ (CLEAR); UROBILINOGEN URINE NORMAL (NORMAL)
[2016-08-12 21:52] LABS: BACTERIA URINE RARE (NEGATIVE); EPITHELIAL URINE 0-2 #/HPF (NEGATIVE); WBC URINE 0-2 #/HPF (NEGATIVE)
[2016-08-12 22:25] LABS: MCH 26.7 pg (27.0-34.0); MPV 11.1 fl (9.4-12.4); PLATELET COUNT 236 K/uL (150-450); RBC 2.92 M/uL (3.50-5.50); RDW-CV 16.8 % (11.9-14.6)
[2016-08-12 22:26] LABS: HEMOGLOBIN 7.8 g/dL (10.0-15.0); WBC 20.7 K/uL (4.0-11.0)
[2016-08-12 23:01] LABS: LYMPHOCYTE % 28 %; SEGMENTED NEUTROPHIL # 8.9 K/uL (1.8-7.8); SEGMENTED NEUTROPHIL % 43 %
[2016-08-12 23:02] LABS: ABSOLUTE NEUTROPHIL CT (ANC) 9.3 K/uL (1.8-7.8); BANDED NEUTROPHIL # 0.4 K/uL (0.0-0.1); BANDED NEUTROPHILS % 2 %; LYMPHOCYTE # 10.1 K/uL (0.8-4.0); MONOCYTE # 0.6 K/uL (0.0-1.0)
[2016-08-13 05:48] LABS: HEMATOCRIT 26.8 % (33.0-46.0); MCH 26.2 pg (27.0-34.0); MCHC 29.1 gm/dL (32.0-36.5); MCV 89.9 fl (83.0-98.0); PLATELET COUNT 217 K/uL (150-450); RBC 2.98 M/uL (3.50-5.50)
[2016-08-13 05:53] LABS: HEMOGLOBIN 7.8 g/dL (10.0-15.0); WBC 17.3 K/uL (4.0-11.0)
[2016-08-13 05:58] LABS: ANION GAP 14.6 (10.0-19.0); CREATININE 2.6 mg/dL (0.5-1.1); POTASSIUM 5.6 mMol/L (3.7-5.1)
--- NOTE | 2016-08-13 06:38 | NUR ---
Significant Event: PATIENT ALERT AND ORIENTED. AFEBRILE, CONTINUES ON DOPAMINE GTT WITH HR'S 80-100;S. CONTINUES ON LEVOPHED GTT TITRATING FOR MAP >60. CONTINUES ON BIPAP 60% FIO2. NPO. MAY HAVE SWABS. HOLCOMB WITH GOOD UOP AFTER BUMEX GIVEN. PIV X2. ALL GTTS QUAD STRENGTH.BLOOD CULTURES X2, STARTED ON IV ANTIBIOTICS. Follow up: CARDIOLOGY AND NEPHROLOGY CONSULTS TODAY.
[2016-08-13 06:51] LABS: ABSOLUTE NEUTROPHIL CT (ANC) 10.7 K/uL (1.8-7.8); LYMPHOCYTE # 6.4 K/uL (0.8-4.0); LYMPHOCYTE % 20 %; MONOCYTE # 0.2 K/uL (0.0-1.0); SEGMENTED NEUTROPHIL # 10.7 K/uL (1.8-7.8); SEGMENTED NEUTROPHIL % 62 %
--- NOTE | 2016-08-13 14:25 | NUR ---
Significant Event: Alert and oriented x3. Follows commands. Bathed this shift. Levophed at 0.18 mcq/kg/min to keep map > 60 and Dopamine at 5 mcqs for bradycardia. Bumex 2 mg given today. Bipap 50% FIO2. Dowling catheter intact. NPO. R) FA and L) FA IV. Cooperative with cares. Repositioned q2h. Follow up: monitor.
--- NOTE | 2016-08-14 05:38 | NUR ---
Significant Event: A/OX3 but confused at times. HR's currently 80's-90's. Patient was on dopamine gtt turned off at 2024, HR's 160's-170's. 0.5mg IV digoxin given. SBP's 100's-110. Levo at 0.14mcg/kg/min to keep maps greater than 65. Tmax 100.3. Continues on Bipap at 40% Fio2. Dowling to DD with 2400ml out. R) FA IV infiltated, patient refusing IV restart at this time. L)FA IV no complications. NPO. Active BS. One small loose BM during shift. Follow up: Wean levophed.
[2016-08-14 08:44] LABS: HEMATOCRIT 26.5 % (33.0-46.0); MCH 25.9 pg (27.0-34.0); MCHC 28.7 gm/dL (32.0-36.5); MCV 90.1 fl (83.0-98.0); MPV 11.3 fl (9.4-12.4); PLATELET COUNT 183 K/uL (150-450); RBC 2.94 M/uL (3.50-5.50); RDW-CV 17.6 % (11.9-14.6); WBC 14.7 K/uL (4.0-11.0)
[2016-08-14 08:49] LABS: HEMOGLOBIN 7.6 g/dL (10.0-15.0)
[2016-08-14 09:00] LABS: ALBUMIN 2.4 gm/dL (3.5-5.0); ALK PHOS 61 IU/L (33-138); ALT < 10 IU/L (12-78); ANION GAP 14.2 (10.0-19.0); AST 11 IU/L (10-40); BLOOD UREA NITROGEN 82 mg/dL (6-24); CALCIUM 7.4 mg/dL (8.5-10.5); CHLORIDE 114 mMol/L (96-110); CO2 24 mMol/L (22-32); CREATININE 2.1 mg/dL (0.5-1.1); ESTIMATED GFR (MDRD EQUATION) 23; POTASSIUM 5.2 mMol/L (3.7-5.1); SODIUM 147 mMol/L (135-145); TOTAL BILIRUBIN 0.5 mg/dL (0.0-1.5); TOTAL PROTEIN 5.6 g/dL (6.0-8.4)
[2016-08-14 10:16] LABS: BANDED NEUTROPHIL # 0.1 K/uL (0.0-0.1); BANDED NEUTROPHILS % 1 %; LYMPHOCYTE # 5.6 K/uL (0.8-4.0); LYMPHOCYTE % 13 %; MONOCYTE # 0.3 K/uL (0.0-1.0)
[2016-08-14 10:17] LABS: ABSOLUTE NEUTROPHIL CT (ANC) 8.7 K/uL (1.8-7.8); SEGMENTED NEUTROPHIL # 8.5 K/uL (1.8-7.8); SEGMENTED NEUTROPHIL % 58 %
--- NOTE | 2016-08-14 15:32 | NUR ---
SIGNIFICANT EVENT: PATIENT ALERT, ORIENTED TO PERSON AND TIME. PATIENT MAKES CONFUSED COMMENTS AT TIMES. DISORIENTED TO PLACE REGARDLESS OF REMINDERS AND REORIENTATION. SPEECH IS CLEAR. PATIENT DENIES NUMBNESS, TINGLING, OR PAIN. OPENS EYES SPONTANEOUSLY AND TO VOICE. PUPILS EQUAL AND REACTIVE. NO FACIAL ASYMMETRY NOTED. PATIENT FOLLOWS ALL COMMANDS. GENERALIZED WEAKNESS, EQUAL STRENGTH THROUGHOUT. PATIENT HAS BEEN IN AFIB RHYTHM, HR 70-90S. PULSES PALPABLE THROUGHOUT. LEVOPHED INFUSING AT 0.08MCG/KG/MIN WEAN TO KEEP SBP>90 AND MAP>60. MAX TEMP OF 99.7 THIS SHIFT. ALBUMIN GIVEN PER MD ORDER. PATIENT STARTED THE SHIFT ON 40% BIPAP. CURRENTLY DOWN TO 6L NASAL CANNULA. SATS 90-93%. RR WITHIN NORMAL. SPONT COUGH, YELLOW THICK PRODUCTION. BOWEL SOUNDS PRESSENT, NO BM TODAY. NPO. HOLCOMB CONTINUED FOR STICT I AND O. ADEQUATE URINE OUTPUT. NO NEW SKIN ISSUES NOTED. PATIENT REFUSED BATH. REPOSITIONED EVERY 2 HOURS. FOLLOW UP: CONTINUE TO MONITOR, WEAN OFF LEVOPHED. CONSIDER SPUTUM CULTURE?
--- NOTE | 2016-08-15 04:30 | NUR ---
Significant Event: Patient alert, disoriented to time occasionally. Follows commands and conversational. Afib, BP stable, with levophed off since 0105. On bipap currently at 40%fio2, lung sounds clear and diminished. Thick creamy secretions with coughing. Bowel sounds active, no bm this shift. Tolerating sips well. Dowling intact, adquate UOP. No new or worsening skin issues. Afebrile. Follow up: Monitor BP.
[2016-08-15 05:16] LABS: INR - (THERAPEUTIC) 1.6 (0.9-1.1); PROTIME 17.7 SECONDS (9.6-11.1)
--- NOTE | 2016-08-15 05:33 | NUR ---
Placed on BiPAP 10/5, 40% FiO2 for increased WOB at 0300 this AM. Resting better.
[2016-08-15 07:15] LABS: BASOPHIL % 0.1 %; EOSINOPHIL % 0.3 %; HEMATOCRIT 23.5 % (33.0-46.0); IMMATURE GRANULOCYTE % 0.2 %; LYMPHOCYTE % 43.1 %; MCV 91.8 fl (83.0-98.0); MONOCYTE % 10.9 %; MPV 11.1 fl (9.4-12.4); NEUTROPHIL # (ANC) 4.2 K/uL (1.8-7.8); NEUTROPHIL % 45.4 %; NRBC % 0 /100WBC (0-0.00); RBC 2.56 M/uL (3.50-5.50); RDW-CV 17.7 % (11.9-14.6); WBC 9.2 K/uL (4.0-11.0)
[2016-08-15 07:17] LABS: HEMOGLOBIN 6.7 g/dL (10.0-15.0); MCH 26.2 pg (27.0-34.0); MCHC 28.5 gm/dL (32.0-36.5); PLATELET COUNT 141 K/uL (150-450)
[2016-08-15 07:28] LABS: CALCIUM 7.6 mg/dL (8.5-10.5); CREATININE 1.7 mg/dL (0.5-1.1); POTASSIUM 4.9 mMol/L (3.7-5.1)
[2016-08-15 07:29] LABS: ANION GAP 13.9 (10.0-19.0); MAGNESIUM 2.9 mg/dL (1.3-2.6)
--- NOTE | 2016-08-15 14:50 | NUR ---
Introduced self/role to patient and her oldest son. She has a walker, cane and toilet riser already at home. She lives with her spouse. Her children live close are around to assist with needs. They couldn't think of any additional DME or care that would be needed. Wrote [employer] on their marker board. CM will continue to follow.
--- NOTE | 2016-08-15 16:52 | NUR ---
Significant Event: CARDIO: SBP 90s, MAPs low 60s. Afebrile. Pulses 2+. No edema. Afib. RESP: 3.5L NC. Clear lung sounds. TRANS: Ambulated to chair. GI: Regular diet, no straw. : 2 mg Bumex and 5 mg Metolazone given. NERUO: CAM negative. Less confused according to family. Follow up: EGD Thursday, 08/18
--- NOTE | 2016-08-16 04:06 | NUR ---
SIGNIFICANT EVENT: NO SIGNIFICANT CHANGES THROUGHOUT SHIFT. DID NOT REQUIRE BIPAP, VSS ON NC. A/OX3 THROUGHOUT SHIFT. FOLLOW UP:
[2016-08-16 05:15] LABS: BASOPHIL % 0.1 %; EOSINOPHIL # 0.1 K/uL (0.0-0.5); EOSINOPHIL % 0.6 %; HEMATOCRIT 27.1 % (33.0-46.0); IMMATURE GRANULOCYTE % 0.3 %; LYMPHOCYTE # 4.6 K/uL (0.8-4.0); LYMPHOCYTE % 44.7 %; MCH 26.8 pg (27.0-34.0); MCHC 29.5 gm/dL (32.0-36.5); MCV 90.6 fl (83.0-98.0); MONOCYTE # 0.9 K/uL (0.0-1.0); MONOCYTE % 8.3 %; MPV 10.1 fl (9.4-12.4); NEUTROPHIL # (ANC) 4.8 K/uL (1.8-7.8); NRBC % 0 /100WBC (0-0.00); PLATELET COUNT 139 K/uL (150-450); RBC 2.99 M/uL (3.50-5.50); RDW-CV 17.2 % (11.9-14.6); WBC 10.3 K/uL (4.0-11.0)
[2016-08-16 13:34] LABS: ALBUMIN 2.8 gm/dL (3.5-5.0); CALCIUM 7.6 mg/dL (8.5-10.5); CREATININE 1.5 mg/dL (0.5-1.1); PHOSPHORUS 3.7 mg/dL (2.5-4.9); POTASSIUM 4.7 mMol/L (3.7-5.1)
[2016-08-16 13:36] LABS: ANION GAP 10.7 (10.0-19.0)
--- NOTE | 2016-08-16 16:17 | NUR ---
Significant Event: Patient is A&O X3, follows all commands, pupils are equal and reactive. SBP have been upper 90's-one teens, MAP's 60's-70's, HR 80's-90's in Afib. Patient is on 2L NC with o2 sats low to mid 90's, RR teens to mid 20's. Lung sounds are clear and diminished. Dowling had 700ml out. Patient is a one assist to the BR and chair. Follow up:
[2016-08-17 04:31] LABS: HEMATOCRIT 28.6 % (33.0-46.0); HEMOGLOBIN 8.1 g/dL (10.0-15.0); MCHC 28.3 gm/dL (32.0-36.5); MCV 93.2 fl (83.0-98.0); MPV 10.8 fl (9.4-12.4); PLATELET COUNT 150 K/uL (150-450); RDW-CV 17.7 % (11.9-14.6); WBC 8.5 K/uL (4.0-11.0)
--- NOTE | 2016-08-17 04:32 | NUR ---
A/OX3. PERRLA. No complaints of pain, n/t. Continues in Afib with HR 80-110s. SBP upper 90s-110s. Continues on NC at 3L. Was put on Bipap throughout the night due to 02 sats dropping and increased HR during a coughing spell. Was given 2mg of Bumex at that time, and is now back on 3L NC with 02 sats in lower 90s. BS active with BM x1. Follow up: EGD and colonoscopy on thursday.
[2016-08-17 04:50] LABS: ALBUMIN 2.9 gm/dL (3.5-5.0); ANION GAP 10.6 (10.0-19.0); CALCIUM 7.9 mg/dL (8.5-10.5); CREATININE 1.4 mg/dL (0.5-1.1); PHOSPHORUS 3.1 mg/dL (2.5-4.9); POTASSIUM 4.6 mMol/L (3.7-5.1)
[2016-08-17 05:28] LABS: ABSOLUTE NEUTROPHIL CT (ANC) 3.1 K/uL (1.8-7.8); LYMPHOCYTE # 5.2 K/uL (0.8-4.0); LYMPHOCYTE % 61 %; MONOCYTE # 0.3 K/uL (0.0-1.0); SEGMENTED NEUTROPHIL # 3.1 K/uL (1.8-7.8); SEGMENTED NEUTROPHIL % 36 %
--- NOTE | 2016-08-17 16:35 | NUR ---
Significant Event:Patient is A/Ox3, forgetful at times. Pleasant and coopertive with cares. AFib with HR 80-90's.SBP 94-112, MAP 58-60. Couple runs of vtach, asymptomatic, Deng notified, no new orders.Afebrile. 3L NC, SPO2 >93%, desats with activity, recovers in a couple minutes. Lungs auscluated clear-fine crackles. Clear Liquid diet til 1800 today, then NPO for colonoscopy and EGD scheduled for tomorrow am.Bowel prep starts tonight at 1800. 1.5L FR/24H. No issues with swallowing, no straws. Lasix PO started today.Dowling patent with clear UOP,1655ml UOP this shift.Active bowel sounds, BMx1 today, hematest done(came back positive).Denies pain. Follow up:EGD/coloscopy in am.NPO at 1800 tonight. Need 1 more hematest
--- NOTE | 2016-08-18 05:01 | NUR ---
patient is easily awake follow simple commands moves all extremities ,out of bed with 1 rn assistance,clear upper lungs sound diminished on the bases,stronge productive cough,thick creamy sections large amount.multiple watery stools after 2 bottles of super bowel prep. follow up:continue to monitor patient;s hemodynamic and repiratory status closely,plan for E.G.D today.
[2016-08-18 05:37] LABS: BASOPHIL % 0.3 %; EOSINOPHIL # 0.1 K/uL (0.0-0.5); EOSINOPHIL % 1.2 %; HEMATOCRIT 28.2 % (33.0-46.0); HEMOGLOBIN 7.9 g/dL (10.0-15.0); IMMATURE GRANULOCYTE % 0.3 %; LYMPHOCYTE % 52.3 %; MCH 26.4 pg (27.0-34.0); MCV 94.3 fl (83.0-98.0); MONOCYTE # 0.3 K/uL (0.0-1.0); MONOCYTE % 4.1 %; MPV 10.9 fl (9.4-12.4); NEUTROPHIL # (ANC) 3.2 K/uL (1.8-7.8); NEUTROPHIL % 41.8 %; NRBC % 0 /100WBC (0-0.00); PLATELET COUNT 126 K/uL (150-450); RBC 2.99 M/uL (3.50-5.50); RDW-CV 18.1 % (11.9-14.6); WBC 7.7 K/uL (4.0-11.0)
[2016-08-18 05:52] LABS: ALBUMIN 2.9 gm/dL (3.5-5.0); ANION GAP 14.3 (10.0-19.0); CALCIUM 8.1 mg/dL (8.5-10.5); CREATININE 1.3 mg/dL (0.5-1.1); PHOSPHORUS 2.4 mg/dL (2.5-4.9); POTASSIUM 4.3 mMol/L (3.7-5.1)
--- NOTE | 2016-08-18 11:17 | NUR ---
A - NUT F/U. FOLLOWS SIMPLE COMMANDS. EGD TODAY. FORGETFUL @ TIMES. WT DOWN D/T LASIX. LABS: NA 147, GLU 69, BUN/CR 37/1.3, ALB 2.9, PHOS 2.4, PREALB 11, HGB/HCT 7.9/28.2 MEDS: LASIX, REMERON, ROCEPHIN DIET: NPO. INTAKE WAS: REF-100%, AVG ~51% ENSURE BID. NEEDS: [id number] KCAL, 58-70 G PRO D - INADEQUATE NUTRIENT INTAKE AT TIMES R/T DECREASED APPETITE AEB INTAKE RECORD. I - GOAL FOR INTAKE 50-75% FOR DURATION OF STAY. WILL CONTINUE ENSURE BID. M/E - WILL MONITOR INTAKE. F/U IN 3-5 DAYS.
--- NOTE | 2016-08-18 16:35 | NUR ---
SIGNIFICANT EVENT: PATIENT ALERT, ORIENTED TO PERSON AND PLACE CONSISTENTLY, AT TIMES DISORIENTED TO TIME. PATIENT OPENS EYES SPOTANEOUSLY AND TO VOICE. PUPILS EQUAL AND REACTIVE. SPEECH IS CLEAR. MAKES CONFUSED/ FORGETFUL COMMENTS AT TIMES. NO FACIAL DROOPING NOTED. DENIES ANY HEADACHES, PAIN, NUMBNESS, OR TINGLING. PATIENT MOVES ALL 4 EXTREMITIES SPOTANEOUSLY AND TO COMMANDS. WEAKNESS NOTED THROUGHOUT, EQUAL STRENGTH. PATIENT AMBULATES WITH GAITBELT AND WALKER, 1 PERSON ASSIST. PATIENT HAS BEEN IN AFIB RHYTHM, HR 70-90S. PULSES PALPABLE THROUGHOUT, THREADY TO LOWER EXTREMITIES. BP STABLE, SBP 90-110S, MAP>60. AFEBRILE. PATIENT IS WEANED TO 2.5L PER NASAL CANNULA, SATS 91-95%. SPONT COUGH, YELLOW COLORED PRODUCTION. BOWEL SOUNDS PRESENT, EGD AND COLONOSCOPY OMPLETED THIS SHIFT, SEE MD REPORT FOR DETAILS. 1 WATER COLORED MUSHY BM THIS SHIFT. HOLCOMB CONTINUED PER MD ORDER, ADEQUATE URINE OUTPUT. LASIX IV GIVEN X1 TODAY. NO NEW SKIN ISSUES. PATIENT REPOSITIONED EVERY 2 HOURS. BATH COMPLETED THIS SHIFT. FOLLOW UP: CONTINUE TO MONITOR
--- NOTE | 2016-08-19 04:06 | NUR ---
SIGNIFICANT EVENTS: VSS ON 4L NC. PT COUGHING UP MODERATE AMOUNTS OF PHLEGM, O2 SATS IMPROVED AFTER THIS. DID TRY TO GET OUT OF BED X1 BUT REMAINED ORIENTED, FORGETFUL AT TIMES. ZHANG HUDSON. FOLLOW UP:
[2016-08-19 05:24] LABS: BASOPHIL % 0.2 %; EOSINOPHIL # 0.1 K/uL (0.0-0.5); EOSINOPHIL % 1.4 %; HEMATOCRIT 27.1 % (33.0-46.0); IMMATURE GRANULOCYTE % 0.1 %; LYMPHOCYTE # 3.9 K/uL (0.8-4.0); LYMPHOCYTE % 48.8 %; MCH 26.5 pg (27.0-34.0); MCV 94.4 fl (83.0-98.0); MONOCYTE # 0.3 K/uL (0.0-1.0); MONOCYTE % 3.2 %; MPV 11.3 fl (9.4-12.4); NEUTROPHIL # (ANC) 3.7 K/uL (1.8-7.8); NEUTROPHIL % 46.3 %; NRBC % 0 /100WBC (0-0.00); PLATELET COUNT 122 K/uL (150-450); RBC 2.87 M/uL (3.50-5.50); RDW-CV 18.3 % (11.9-14.6)
[2016-08-19 05:29] LABS: HEMOGLOBIN 7.6 g/dL (10.0-15.0)
[2016-08-19 05:35] LABS: ALBUMIN 2.7 gm/dL (3.5-5.0); ANION GAP 10.3 (10.0-19.0); CALCIUM 7.9 mg/dL (8.5-10.5); CREATININE 1.2 mg/dL (0.5-1.1); POTASSIUM 4.3 mMol/L (3.7-5.1)
--- NOTE | 2016-08-19 14:30 | NUR ---
Spoke with patient regarding discharge plans. She has O2 at home and a walker at home. Says her can assist her at home. Talked with her about HHC and therapies at home. She says she can do her own therapy at home. Talked with her about what HHC can do to help her and that her was recommending HHC. She tells me several times she does not want HHC when she goes home. Told her I will leave a note for her doctor and we will see what her doctor says. Note on chart for that patient does not want HHC. Will follow.
--- NOTE | 2016-08-19 16:35 | NUR ---
Significant Event: PT A&O x3, forgetful. VSS, O2 at 2L per nasal cannula. PT denies pain. Ambulates with walker, gait belt and 1 assist. PT voiding without difficulties. Small mushy BM this shift. Albumin IV given this shift. Tolerating regular diet, 1500ml fluid restriction. Bed and chair alarms on. Follow up:
--- NOTE | 2016-08-20 05:35 | NUR ---
Significant Event: Pt is alert and orineted x3, but can be forgetful at times. Pupils are euqal and reactive. Moves all extremities spontaneously and to command. SBP's have been in the 90-100. Pt ambulates with a 1 assist with gait belt and walker. Voids per bathroom, 1 BM this shift. PIV in place. Follow up: 2 View chest X-ray today.
[2016-08-20 05:37] LABS: HEMATOCRIT 25.7 % (33.0-46.0)
[2016-08-20 05:42] LABS: HEMOGLOBIN 7.1 g/dL (10.0-15.0)
[2016-08-20 05:54] LABS: ANION GAP 8.1 (10.0-19.0); CALCIUM 8.3 mg/dL (8.5-10.5); CREATININE 1.2 mg/dL (0.5-1.1); MAGNESIUM 2.6 mg/dL (1.3-2.6); POTASSIUM 4.1 mMol/L (3.7-5.1)
--- NOTE | 2016-08-20 17:23 | NUR ---
Significant Events: Patient oriented x3, denies N/T or pain. Remains in Afib, SBP stable for patient. Continues on 2.5L O2 N/C. Appetite fair. Voids without difficulty. HGB at 1700 7.8, up from 7.1. Plans to go home in the AM.
[2016-08-21 04:31] LABS: BASOPHIL % 0.1 %; EOSINOPHIL # 0.1 K/uL (0.0-0.5); IMMATURE GRANULOCYTE % 0.3 %; LYMPHOCYTE % 51.8 %; MCH 26.3 pg (27.0-34.0); MCHC 27.3 gm/dL (32.0-36.5); MCV 96.3 fl (83.0-98.0); MONOCYTE # 0.5 K/uL (0.0-1.0); MONOCYTE % 6.8 %; MPV 11.9 fl (9.4-12.4); NEUTROPHIL # (ANC) 3.1 K/uL (1.8-7.8); NRBC % 0 /100WBC (0-0.00); PLATELET COUNT 133 K/uL (150-450); RDW-CV 18.5 % (11.9-14.6); WBC 7.7 K/uL (4.0-11.0)
[2016-08-21 04:32] LABS: HEMOGLOBIN 7.1 g/dL (10.0-15.0)
[2016-08-21 04:41] LABS: ALBUMIN 2.8 gm/dL (3.5-5.0); CALCIUM 8.2 mg/dL (8.5-10.5); CREATININE 1.2 mg/dL (0.5-1.1); POTASSIUM 4.3 mMol/L (3.7-5.1)
[2016-08-21 04:42] LABS: ANION GAP 9.3 (10.0-19.0); MAGNESIUM 2.7 mg/dL (1.3-2.6)
--- NOTE | 2016-08-21 04:59 | NUR ---
Significant Event: Patient AOx3. No cardiac events, remains in afib and continues to have slighly low BP. No respiratory events, on 2L/NC currently. Tolerating diet without complication, bm x1 this shift. Void x1 this shift. No new or worsening skin issues. PIVx1 SL'd Follow up: Discharge home today.
--- NOTE | 2016-08-21 12:00 | NUR ---
I did get a call from DR Whiteside and pt going home but would like [facility]. I did go down and introduced myself and role to son Judah [phone] and did explain that [facility] is covered under the Medicare part A and they can assist with skilled needs. I did discuss options for area and would like [place] [facility] because doctor in [place]. Judah did say he would like [facility] to contact him as well. I then called and spoke with Jenifer and made referral and faxed orders and did give her son Judah phone number. Will assist as needed.
[2016-08-21] MEDS ORDERED: FEOSOL325 MG PO (12:20)
[2016-08-21] MEDS ORDERED: LASIX40 MG PO ×2 (12:22)
--- NOTE | 2016-08-21 13:00 | NUR ---
Patient discharged to home at 1300. Patient was wheeled to [facility] for discharge by wheel chair. No c/o pain/discomfort at time of discharge. Patient's blood pressure/HR stable. Discharge instructions were discussed with son and also with patient.
== END 2016-08-21 13:00 | disposition disaster alternative care site (69) | DRG 291 ==
LOC: GICU 18:15
PROVIDERS: Internal Medicine; Internal Medicine Gastroenterology; Internal Medicine Hematology & Oncology; Internal Medicine Interventional Cardiology; Internal Medicine Nephrology; Nurse Practitioner; Registered Nurse; ADMIT Internal Medicine Critical Care Medicine
PROC: 30233N1 Transfusion of Nonautologous Red Blood Cells into Peripheral Vein, Percutaneous Approach (ICD-10-PCS; 2016-08-15)
PROC: 0DB98ZX Excision of Duodenum, Via Natural or Artificial Opening Endoscopic, Diagnostic (ICD-10-PCS; principal; 2016-08-18)
PROC: 0DJD8ZZ Inspection of Lower Intestinal Tract, Via Natural or Artificial Opening Endoscopic (ICD-10-PCS; 2016-08-18)
DX: I50.33 Acute on chronic diastolic (congestive) heart failure (principal); R57.0 Cardiogenic shock; J96.21 Acute and chronic respiratory failure with hypoxia; N17.9 Acute kidney failure, unspecified; E46 Unspecified protein-calorie malnutrition; K31.811 Angiodysplasia of stomach and duodenum with bleeding; C91.10 Chronic lymphocytic leukemia of B-cell type not having achieved remission; G47.34 Idiopathic sleep related nonobstructive alveolar hypoventilation; J96.22 Acute and chronic respiratory failure with hypercapnia; D62 Acute posthemorrhagic anemia; I27.2 Other secondary pulmonary hypertension; I34.0 Nonrheumatic mitral (valve) insufficiency; I48.91 Unspecified atrial fibrillation; J44.9 Chronic obstructive pulmonary disease, unspecified; Z99.81 Dependence on supplemental oxygen; Z87.891 Personal history of nicotine dependence; F41.9 Anxiety disorder, unspecified; F32.9 Major depressive disorder, single episode, unspecified
CPT/HCPCS: J0696; J1160; J1265; J1940; J7030; J7040; J7050; J7060; P9016; P9047

== ENCOUNTER 2016-08-30 13:30 | Inpatient (IN) | payer MEDICARE, OTHER ==
[~2016-08-30] VITALS: Ht 157.5 cm; Wt 45.7 kg
--- NOTE | ~2016-08-30 | DS ---
PATIENT'S NAME: AMADOR RACHEL [facility] AGE: 75 Y [address] ROOM: [id number] [place], [place] [address] LOCATION: GPCU ADMIT DATE: 08/30/2016 Discharge Summary DISCHARGE DATE: 09/12/2016 FAMILY PHYSICIAN: Physician, Unknown ATTENDING PHYSICIAN: Jan Vilchis PRINCIPAL DIAGNOSES: 1. Acute on chronic hypoxic respiratory failure. 2. Acute on chronic diastolic congestive heart failure. Severe mitral regurgitation. 3. Healthcare-acquired pneumonia. Acute kidney injury on chronic kidney disease, III. BRIEF HOSPITAL COURSE: This is a 75-year-old female with history of chronic respiratory failure, diastolic CHF, chronic kidney disease stage III, severe MR, and multiple prior admissions for respiratory failure, admitted for the same. The patient during the hospitalization was treated for diastolic CHF exacerbation from volume overload as well as possible underlying pneumonia and mucus plaquing with subsequent right lung collapse in the lower lobe. The patient subsequently had the bronchoscopy done to manage mucus plugging and subsequently managed with diuretics as well as antibiotics and had comprehensive management of her respiratory failure. The patient showed clinical improvement for this management and was subsequently transferred out of ICU to Progressive Care Unit. The patient's oxygen requirement today is back to what is baseline for her. Appears comfortable, although she does have shortness of breath that is baseline for her. At this point, she has finished 9 days of antibiotics with Zosyn and we will continue to taper her IV steroids down as well. Palliative Care was involved and had a long discussion with family as far as goals of care, and at this point in time, the family has decided to continue the current level of care. The patient will be discharged to [facility]. We will discharge her on prednisone taper for 12 days. I have called out to Dr. Penn and we will give an update on the patient's status and we will follow closely once I have a phone call returned to me. Today on exam, she is awake, alert, and oriented x3. Lungs: Diminished breath sounds diffusely with mild wheezings. Abdomen: Soft, nontender, and nondistended. Extremities: Without edema. DISPOSITION: To [facility]. Greater than 30 minutes were spent in discharge planning and facilitating. PITA HERNANDES MD PATIENT'S NAME: AMADOR RACHEL [facility] AGE: 75 Y [address] ROOM: [address] [address] [facility] ADMIT DATE: 08/30/2016 Discharge Summary DISCHARGE DATE: 09/12/2016 FAMILY PHYSICIAN: Physician, Unknown ATTENDING PHYSICIAN: Jan Vilchis/talita /[id number] d: 09/13/16 0253 t: 09/30/16 0927, DISCHARGE SUMMARY
--- NOTE | ~2016-08-30 | DS ---
PATIENT'S NAME: AMADOR RACHEL [facility] AGE: 75 Y [address] 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 The patient's anemia was managed conservatively, and hemoglobin today is above 9 and has been above 9 during most of her hospital stay. The patient does have a history of atrial fibrillation, but at this time, we will continue to avoid using long-term anticoagulation in the setting of high risk for continued GI bleed or any type of blood loss. Of note, the patient did not have melena during DICTATION ENDS HERE. MD NAUN FLORES/talita /[id number] d: 09/13/16 0221 t: 09/30/16 0930, DISCHARGE SUMMARY
--- NOTE | ~2016-08-30 | CON ---
PATIENT'S NAME: AMADOR RACHEL [facility] AGE: 75 Y [address] ROOM: [place] [address] LOCATION: GICU ADMIT DATE: 08/30/2016 Consultation DISCHARGE DATE: FAMILY PHYSICIAN: PHYSICIAN, UNKNOWN ATTENDING PHYSICIAN: Fahad Vilchis DATE OF CONSULTATION: 08/30/2016 REFERRING PHYSICIAN: LONG JAMESON MD REASON FOR ADMISSION: 1. Hypotension secondary to cardiogenic factors. 2. Acute hypoxic respiratory failure, acute on chronic. 3. Collapsed right lung. HISTORY OF PRESENTING ILLNESS: This is a 75-year-old female, who was recently discharged from [facility] after an admission for cardiogenic shock. She also was noted to have severe mitral regurgitation, tricuspid regurgitation, and severe anemia, she does have a history of CLL. The patient apparently was discharged home, she was doing well, she presented to [facility] with increased shortness of breath. She was found to have a hemoglobin of 6 and she was transfused, she did fairly well and then she started to complain of shortness of breath. She was started on diuresis. Earlier this morning, the patient had more shortness of breath. A chest x-ray was done, which showed complete whiteout of her right lung. Subsequently, the patient was hemodynamically stable. She was transferred to [facility] for higher level of care. The patient denied any increased cough, shortness of breath, pleurisy, hemoptysis, nausea, vomiting, or abdominal pain. The patient still has anemia of unknown etiology. PAST MEDICAL HISTORY: 1. Chronic lymphocytic leukemia. 2. Chronic renal failure. 3. Chronic obstructive pulmonary disease with recent hypercapnic respiratory failure. 4. Pulmonary hypertension. 5. Failure to thrive. 6. Atrial fibrillation. 7. Depression. 8. Severe mitral regurgitation. FAMILY HISTORY: Her father had cancer of the lung. Also had heart disease. Her sister and PATIENT'S NAME: AMADOR RACHEL [facility] AGE: 75 Y [address] ROOM: [place] [address] LOCATION: [facility] ADMIT DATE: 08/30/2016 Consultation DISCHARGE DATE: FAMILY PHYSICIAN: PHYSICIAN, UNKNOWN ATTENDING PHYSICIAN: Fahad Vilchis her brother had heart disease too. SOCIAL HISTORY: She is an ex-smoker. She has a history of 60 pack years. She does not have history of alcohol or substance abuse. REVIEW OF SYSTEMS: A 10-point review of systems was done and otherwise negative other than mentioned in the history of presenting illness. ALLERGIES: SHE IS ALLERGIC TO SULFADIAZINE, WHICH CAUSES HIVES. CURRENT MEDICATIONS: 1. Alprazolam 0.5 mg. 2. Ambien. 3. Bumex 2 mg. 4. Daliresp. 5. DuoNeb. 6. Maalox. 7. Milk of magnesia. 8. Motrin. 9. ProAir. 10. Solu-Medrol 125. 11. Sodium chloride. 12. Zofran. 13. Zosyn. 14. Diltiazem. 15. Ferrous sulfate. 16. Lisinopril. 17. Mirtazapine. 18. Morphine. PAST SURGICAL HISTORY: She denied any surgeries. PHYSICAL EXAMINATION: GENERAL: Upon initial evaluation, the patient is lying in bed, does appear in mvfe-zq-tnpbnwbl respiratory distress. VITAL SIGNS: Blood pressure 85/44 with a MAP of 55, SpO2 was 88% on 3 L nasal cannula, heart rate is 75, and respiratory rate were in the mid 20s. HEENT: Eyes are nonicteric. Pupils are equal and reactive to light. Normocephalic and atraumatic. Mallampati score is II. NECK: Supple. No lymphadenopathy. No jugular venous distention. LUNGS: Diminished air entry on the right, although there are crackles at the PATIENT'S NAME: AMADOR RACHEL [facility] AGE: 75 Y [address] ROOM: [place] [address] LOCATION: [facility] ADMIT DATE: 08/30/2016 Consultation DISCHARGE DATE: FAMILY PHYSICIAN: PHYSICIAN, UNKNOWN ATTENDING PHYSICIAN: Fahad Vilchis. HEART: S1 and S2. No murmurs, rubs, or gallops appreciated. ABDOMEN: Soft. Nontender. No palpable organs. LOWER EXTREMITIES: +1 edema at the ankles, otherwise unremarkable. LABORATORY DATA: Laboratory data that is available to me from [facility] includes a sodium 145, potassium 5.4, chloride level 106, CO2 of 33.6, anion gap of 5.4, glucose level 168, BUN of 70, creatinine of 2.24, calcium level of 8, alkaline phosphatase of 55, AST of 13, ALT of 14, protein total of 5.9, albumin level of 2.7, proBNP of 6750. White blood cell count 12.7, hemoglobin was 9.2, hematocrit 31.8, MCV 98, and MPV was 11.6. Her PT/INR . Her urinalysis was not very remarkable. Her ABG showed a sat of 89.9 and pCO2 of 64. Her chest x-ray from the other hospital revealed complete opacification of the right hemithorax with shift to the right and possible pleural effusion. A CT scan of the chest was also done, which revealed right mediastinal shift with cutoff at the mid right mainstem with a possible pleural effusion on the right. IMPRESSION: 1. Acute hypoxic hypercapnic respiratory failure secondary to mucous plugging and pleural effusion on the right lung. 2. Severe chronic obstructive pulmonary disease. 3. Anemia of unknown etiology. 4. Severe mitral regurgitation. 5. Hypotension secondary to severe mitral regurgitation. RECOMMENDATIONS: 1. At the current point, we will proceed with bronchoscopy to open up the lungs and decrease the stress on the heart. 2. The risks and benefits of the procedure were discussed with the patient. The patient agrees to proceed with the procedure. 3. We will obtain a PT/INR. 4. Ultrasound of the chest to evaluate the pleural effusion. 5. I would also recommend a GI evaluation. I will consult the Hospitalist Service. 6. We will resume her home medications. 7. We will follow up with you. I have spent 65 minutes of critical care time in direct care of this patient, not including the time spent for the bronchoscopy. Thank you for allowing me to participate in the care of this patient. PATIENT'S NAME: AMADOR RACHEL [facility] AGE: 75 Y [address] ROOM: [place] [address] LOCATION: [facility] ADMIT DATE: 08/30/2016 Consultation DISCHARGE DATE: FAMILY PHYSICIAN: PHYSICIAN, UNKNOWN ATTENDING PHYSICIAN: Fahad Vilchis FAHAD VILCHIS MD GSK/modl /[id number] d: 08/30/165 t: 09/01/16 1634, CONSULTATION REPORT
--- NOTE | ~2016-08-30 | CON ---
PATIENT'S NAME: W[facility]SON [facility] AGE: 75 Y [address] ROOM: [place] [address] LOCATION: [facility] ADMIT DATE: 08/30/2016 Consultation DISCHARGE DATE: FAMILY PHYSICIAN: PHYSICIAN, UNKNOWN ATTENDING PHYSICIAN: Jan Vilchis DATE OF CONSULTATION: 08/31/2016 CONSULTING PHYSICIAN: Dr. Rossi. REASON FOR CONSULTATION: Medical management. HISTORY OF PRESENT ILLNESS: The patient is a chronically ill 75-year-old female with multiple medical problems, further detailed below, most significant for nevbb-pq-lpvaqgk hypoxic respiratory failure, COPD, and chronic combined systolic-diastolic congestive heart failure. The patient was transferred to [facility] from [place] where she was being treated for chronic anemia. Here the patient was noted to be in respiratory failure and has undergone a bronchoscopy with evacuation of mucus plugs and has been also hypotensive on Cb-Synephrine. She is also considerably hypoxic right now requiring 6 L of oxygen to maintain saturations in the low 90s. REVIEW OF SYSTEMS: At this point, the patient just complains of generalized malaise and shortness of breath. All systems have been reviewed and negative aside from pertinent positives mentioned above. PAST MEDICAL HISTORY: 1. Chronic atrial fibrillation, not on anticoagulation. 2. AVMs of the duodenum. 3. Chronic lymphocytic leukemia. 4. Chronic anemia. 5. Chronic hypoxic respiratory failure. 6. Severe pulmonary hypertension. SOCIAL HISTORY: Significant for history of tobacco use, but no ongoing toxic habits. FAMILY HISTORY: Reviewed and is noncontributory due to advanced age and no underlying PATIENT'S NAME: WILSON [facility] AGE: 75 Y [address] ROOM: [place] [address] LOCATION: [facility] ADMIT DATE: 08/30/2016 Consultation DISCHARGE DATE: FAMILY PHYSICIAN: PHYSICIAN, UNKNOWN ATTENDING PHYSICIAN: Jan Vilchis etiology. CURRENT MEDICATIONS ARE: 1. Bumex 2 mg IV daily. 2. Piperacillin. 3. Roflumilast. 4. Lisinopril. 5. Furosemide. 6. Diltiazem. 7. Mirtazapine. 8. Dulera. 9. DuoNeb. 10. Ferrous sulfate. 11. Albuterol. 12. Levofloxacin. PHYSICAL EXAMINATION: VITAL SIGNS: At this point, her vital signs are blood pressure 100/60, heart rate is in the 110s and irregular, satting 93% on 6 L nasal cannula, she is afebrile, and respirations are in mid-to-low 20s. GENERAL: Appears as a chronically ill, emaciated elderly female, in mild respiratory distress. NEUROLOGICAL: Nonfocal. EYES: Exam shows pupils are equal and reactive to light. LYMPHATIC: Exam shows no cervical lymphadenopathy. ENDOCRINE: Exam shows no thyromegaly. LUNGS: Exam reveals diminished breath sounds in all valentino, but no wheezing. HEART: Exam reveals irregular tachycardia with accentuated S2. There is approximately 10-cm of jugular venous distention, but no lower extremity edema. GI: Exam reveals abdomen is soft, nontender. : Exam reveals no costovertebral angle tenderness. VASCULAR: Exam reveals 2+ pedal pulses. MUSCULOSKELETAL: Exam reveals a deformity of left shoulder from a distant fracture. PSYCHIATRIC: Exam reveals appropriate mood, cognition, and affect. SKIN: Warm and dry. LABORATORY STUDIES: Studies that are pertinent so far is a creatinine of 2.4 from a baseline in 1.2 to 1.5. White count is 16.1, hemoglobin is 9.9, and platelets of 402. Chest x-ray reveals severe cardiomegaly and bibasilar consolidation versus infiltrate. IMPRESSION AND RECOMMENDATIONS: PATIENT'S NAME: AMADOR RACHEL [facility] AGE: 75 Y [address] ROOM: [place] [address] LOCATION: [facility] ADMIT DATE: 08/30/2016 Consultation DISCHARGE DATE: FAMILY PHYSICIAN: PHYSICIAN, UNKNOWN ATTENDING PHYSICIAN: Jan Vilchis This is a 75-year-old female who is admitted with: 1. Rlpct-su-qsogizl hypoxic respiratory failure due to chronic obstructive pulmonary disease exacerbation/pneumonia. I discussed the patient with Dr. Vilchis and we agreed that starting this patient on steroids may be of benefit. As such, we will order steroids and continue monitoring her respiratory status. 2. Wuvcr-dh-fyrxmua combined systolic-diastolic congestive heart failure. The patient has received several units of blood at the outside facility and indeed required Bumex drip in the first day of her hospitalization here. At this point, she actually appears maybe somewhat on an intravascular depleted state compared to her baseline. However, I reviewed notes from her prior hospitalization, she does have stage IV heart failure though we do not have an echocardiogram on her. Given this presentation, we will request a Cardiology consultation, but continue her on Bumex for now. We will also get a 2-dimensional echo unless a recent one can be produced. 3. Utpjx-mm-grhlfex kidney injury. This may be cardiorenal in nature. We will discontinue the patient's lisinopril and monitor her renal function. I will also discontinue her home dose of Lasix. 4. Hypotension. I am wondering if this could be either cardiogenic shock versus the patient typically running on the lower side. We will request echocardiogram as above and make a decision regarding her blood pressure targets with the help of the Cardiology consultation who are familiar with her. 5. Atrial fibrillation. At this point, the patient is still quite tachycardic, but I feel like she will benefit from continuing her Cardizem despite her hypotension. We will hold off on anticoagulation due to history of gastrointestinal bleeding. 6. Chronic anemia. I believe the patient will not benefit from high-dose oral iron while an inpatient. We will discontinue that. 7. Deep vein thrombosis prophylaxis, should be pharmacologic as she is at very high-risk for developing a deep vein thrombosis. 8. Additional management will depend on clinical course. Thank you for involving us in the care of this patient. Total critical care time dedicated to this patient's encounter is 45 minutes. MD HELDER JAVIER/talita /[id number] d: 09/01/16 0050 t: 09/04/16 0715, CONSULTATION REPORT
--- NOTE | ~2016-08-30 | CON ---
PATIENT'S NAME: WILSON AMADOR [facility] AGE: 75 Y [address] ROOM: [address] [address] LOCATION: GICU ADMIT DATE: 08/30/2016 Consultation DISCHARGE DATE: FAMILY PHYSICIAN: PHYSICIAN, UNKNOWN ATTENDING PHYSICIAN: Jan Vilchis DATE OF CONSULTATION: 09/01/2016 REFERRING PHYSICIAN: LONG JAMESON MD CARDIOLOGY CONSULT REASON FOR CARDIOLOGY CONSULT: History of severe mitral regurgitation and congestive heart failure with fluid overload. HISTORY OF PRESENT ILLNESS: This is a 75-year-old female, familiar to [facility] and specifically Dr. Elena Shook. She was last seen in consult on 08/13/2016 and was recently discharged to home from [facility] on 08/21/2016. She returns with complaints of shortness of breath and fluid overload. She was initially treated at [facility] for anemia and did receive some packed red blood cells. She has some complaints of mild chest and lung pain. She is also very short of breath. There is some notation of some minimal peripheral edema, but she does have a proBNP level of 11,123, and her chest x-ray shows extensive fluid and lung shift on the right side of her chest x-ray. She denies headache, nausea, vomiting, diarrhea, or syncope. Past medical history, family, and social history unchanged from my dictation on 08/13/2016. CURRENT MEDICATIONS: 1. Dulera 200/5 mcg 2 puffs inhaled twice daily. 2. Ipratropium bromide and albuterol sulfate inhaled every 4 hours. 3. Bumex IV drip. 4. Levaquin 750 mg IV every 48 hours. 5. Cb-Synephrine IV as needed for hypotension. 6. Zosyn 3.375 g IV every 12 hours. 7. Cardizem CD 240 mg p.o. daily. 8. Colace 100 mg p.o. 3 times daily. 9. Daliresp 500 mcg p.o. daily. 10. Remeron 30 mg p.o. daily in the evening. 11. Heparin 5000 units subcu twice daily. MEDICATION ALLERGIES: Sulfadiazine causing hives. PATIENT'S NAME: WILSON AMADOR [facility] AGE: 75 Y [address] ROOM: [address] [address] LOCATION: [facility] ADMIT DATE: 08/30/2016 Consultation DISCHARGE DATE: FAMILY PHYSICIAN: PHYSICIAN, UNKNOWN ATTENDING PHYSICIAN: Jan Vilchis REVIEW OF SYSTEMS: Pertinent positive review of systems noted in the HPI. All other review of systems evaluated and negative. PHYSICAL EXAMINATION: VITAL SIGNS: Temperature 98.4, pulse 110, respirations 26, blood pressure 112/35, O2 saturation 91% on 50% high-flow nasal cannula. The patient weighs 54.8 kg. SKIN: Pale but warm and dry. EYES: Sclerae are clear. No xanthelasmas. ENT: Oral mucosa is pink and moist. No carotid bruits noted. Does have positive JVD at 8 cm. CHEST: Respirations are even and moderately labored. She has fine crackles to her left base, and she has very little air movement noted to her right lower lobe. HEART: Irregular rate and rhythm. Normal S1 and S2. She is tachycardic and has the presence of a 2/6 systolic murmur. ABDOMEN: Soft and nontender. MUSCULOSKELETAL: Equal muscle strength to upper and lower extremities bilaterally against resistance. EXTREMITIES: Peripheral pulses palpable. No clubbing or cyanosis. She does have trace lower extremity edema present. PSYCH: Alert and oriented. Mood and affect are appropriate, though she does seem slightly withdrawn and does take some time to answer interview questions. DIAGNOSTICS: CMS evaluation shows sodium of 142, potassium 4.5, BUN of 77, creatinine 2.2, glucose of 168. She has a proBNP of 11,123. She has a PT/INR of 11.4 and 1.1 respectively. CBC evaluation shows a white blood cell count of 14.5, hemoglobin 9.9, hematocrit 33.4, and platelets of 406. IMPRESSION AND PLAN: Per Dr. Elena Shook. 1. Recurrent admission for acute on chronic diastolic congestive heart failure with fluid overload. 2. Severe mitral regurgitation. 3. Acute on chronic hypoxic respiratory failure secondary to chronic obstructive pulmonary disease. 4. Chronic atrial fibrillation. 5. Acute on chronic kidney disease. I do agree with the Bumex drip with careful monitoring of I's and O's and closely watch her creatinine. Once she is euvolemic, we will have Physical Therapy work with her to improve her strengthening, and once she is stronger, we will refer her to the structural heart team for consideration for a mitral PATIENT'S NAME: AMADOR RACHEL [facility] AGE: 75 Y [address] ROOM: [address], [place] [address] LOCATION: [facility] ADMIT DATE: 08/30/2016 Consultation DISCHARGE DATE: FAMILY PHYSICIAN: PHYSICIAN, UNKNOWN ATTENDING PHYSICIAN: Jan Vilchis valve clip. We will continue to monitor, evaluate, and treat as appropriate. Thank you for this consult. Thank you for allowing [facility] to interact in the care of this patient. CHUY CEDILLO APRN FOR MD SILVIANO FARMER/talita /[id number] d: 09/01/162231 t: 09/18/16 1634, CONSULTATION REPORT
--- NOTE | ~2016-08-30 | CON ---
PATIENT'S NAME: AMADOR RACHEL [facility] AGE: 75 Y [address] ROOM: [place] [address] LOCATION: GICU ADMIT DATE: 08/30/2016 Consultation DISCHARGE DATE: FAMILY PHYSICIAN: PHYSICIAN, UNKNOWN ATTENDING PHYSICIAN: Jan Vilchis DATE OF CONSULTATION: 08/30/2016 REFERRING PHYSICIAN: LONG JAMESON MD Inpatient Consultation. REFERRING PHYSICIAN: Jan Vilchis MD. REASON FOR CONSULTATION: Anemia. HISTORY OF PRESENT ILLNESS: This patient has been well known to our service. She was last seen within this month by Dr. Rodriguez. Please refer to our inpatient consultation notes from there. In summary, she was admitted with anemia. The last upper endoscopy had shown AVM in the duodenum. This was cauterized. The exam of the colon was fairly unremarkable. She continued to have some anemia and was admitted to [place] with apparently anemia. Subsequently, she was also found to have pneumonia and treated for that followed by transfer to [place] for a higher level of care. She, at this point, was found to have pleural effusions, being managed accordingly. Her hemoglobin was found to be 9.5. She has received at least between 2 and 4 units of blood in [place]. The concern was if she is losing any blood further. The patient denies any history of GI bleeding. She has no hematemesis or melena. PHYSICAL EXAMINATION: GENERAL: She is alert and awake. VITAL SIGNS: Her blood pressure 96/54, pulse is 103 per minute, AND O2 saturation is 91%. ABDOMEN: Soft and nontender. I do not feel any masses. LABORATORY DATA: Labs done today showed WBC 14.1, hemoglobin 10.5, hematocrit 31.8, platelet count 376, and MCV 98.8. Her hemoglobin around 7 range in the last admission. She said she got 4 units of blood in [place]. ASSESSMENT AND PLAN: PATIENT'S NAME: AMADOR RACHEL [facility] AGE: 75 Y [address] ROOM: [address] [place] [address] LOCATION: GICU ADMIT DATE: 08/30/2016 Consultation DISCHARGE DATE: FAMILY PHYSICIAN: PHYSICIAN, UNKNOWN ATTENDING PHYSICIAN: Jan Vilchis The patient apparently clinically has no evidence of gastrointestinal blood loss. She has no melena. She has no hematemesis. However, she did receive some blood in [place]. I think it is worthwhile to continue to follow hemoglobin. No aggressive GI intervention is required at this time. We will watch her hemoglobin, should it drop further, we might consider repeat endoscopy. In the interim, she can be continued on the aggressive treatment for lung infection as per the request of Dr. Vilchis. We will be happy to follow this patient along with you. MD KATHERINE HERRING/talita /[id number] d: 08/31/16 0050 t: 09/01/16 1544, CONSULTATION REPORT
--- NOTE | ~2016-08-30 | CON ---
PATIENT'S NAME: [facility]SON [facility] AGE: 75 Y [address] ROOM: [place] [address] LOCATION: GPCU ADMIT DATE: 08/30/2016 Consultation DISCHARGE DATE: FAMILY PHYSICIAN: PHYSICIAN, UNKNOWN ATTENDING PHYSICIAN: Jan Vilchis DATE OF CONSULTATION: 09/03/2016 REFERRING PHYSICIAN: LONG JAMESON MD LOCATION: ICU, room [facility]. REFERRING PROVIDER: Jan Vilchis MD CHIEF COMPLAINT: Palliative care referral for goals of care and end of life discussion. HISTORY OF PRESENT ILLNESS: The patient is a 75-year-old female who was recently hospitalized August 12 through August 21 for cardiogenic shock, acute on chronic hypoxic respiratory failure, acute kidney injury, and acute congestive heart failure. Following that hospitalization, she was discharged home with home health care services. While at home, she became increasingly short of breath. On admission, she was found to have a proBNP level of 11,123, and her chest x-ray showed extensive pulmonary edema. The patient has known severe mitral regurgitation and pulmonary hypertension, and at this point, it is felt that she is a very high-risk candidate for any surgery or procedure to repair this. On admission, this time, the patient was also found to have a collapsed right lung, and she underwent a bronchoscopy for this. The patient is currently in the intensive care unit requiring high-flow oxygen at 40% FiO2. She is alert and oriented, but is at times slow to respond to questions. She reports feeling short of breath at rest, but says this has improved since admission. She denies any pain or discomfort. Denies any chest pain. No headaches. No nausea, vomiting, diarrhea, or constipation, though she has not had a bowel movement since admission. Given the patient's multiple comorbidities, Palliative Care has been consulted to assist with goals of care conversation. PREVIOUS OPERATIONS: Bronchoscopy. PAST MEDICAL HISTORY: 1. Chronic lymphocytic leukemia. 2. Chronic kidney disease. 3. Severe pulmonary hypertension, moderate tricuspid regurgitation, and PATIENT'S NAME: AMADOR RACHEL [facility] AGE: 75 Y [address] ROOM: [place] [address] LOCATION: GPCU ADMIT DATE: 08/30/2016 Consultation DISCHARGE DATE: FAMILY PHYSICIAN: PHYSICIAN, UNKNOWN ATTENDING PHYSICIAN: Jan Vilchis severe mitral regurgitation. 4. Atrial fibrillation, currently only on aspirin. 5. COPD. 6. Anxiety and depression. 7. Osteoarthritis. 8. Congestive heart failure. 9. Protein-calorie malnutrition. 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 MEDICATIONS: Home medications are: 1. Albuterol one puff every 4 hours as needed. 2. Diltiazem ER 180 mg p.o. daily. 3. Ferrous sulfate 325 mg 3 times daily. 4. Advair 500/50 one puff twice daily. 5. Lasix 40 mg daily. 6. Albuterol nebulizers every 6 hours as needed. 7. Prinivil 5 mg p.o. daily. 8. Remeron 30 mg at bedtime. 9. Daliresp 500 mcg p.o. daily. ALLERGIES: SULFADIAZINE. SOCIAL HISTORY: The patient is and lives with her near [place], [place]. Her 2 sons live nearby as well. She has a very distant past history of smoking a pack a day for a few years. No current alcohol use. FAMILY HISTORY: Her father of an OR. She has multiple siblings with heart disease as well. REVIEW OF SYSTEMS: GENERAL: Appetite has been decreased. Positive for fatigue. No recent fever, chills, or night sweats. HEENT: No change in vision or hearing. Denies headache. RESPIRATORY: Positive for shortness of breath at rest, but this has improved since hospitalization. Denies chronic cough or wheezes. CARDIOVASCULAR: No chest pain, pressure, or palpitations. Positive for orthopnea. No edema at this time. GASTROINTESTINAL: No nausea, vomiting, diarrhea, or constipation, but does note that she has not had a bowel movement since hospitalization. Denies dysphagia. GENITOURINARY: No dysuria, urinary frequency, or urgency. PATIENT'S NAME: AMADOR RACHEL [facility] AGE: 75 Y [address] ROOM: [place] [address] [facility] AD[facility] DATE: 08/30/2016 Consultation DISCHARGE DATE: FAMILY PHYSICIAN: PHYSICIAN, UNKNOWN ATTENDING PHYSICIAN: Jan Vilchis MUSCULOSKELETAL: Denies any pain or discomfort. Denies any recent falls. Does feel weak. Generalized weakness. NEUROLOGICAL: No numbness or tingling. Denies dizziness or seizures. INTEGUMENTARY: No rashes or open areas. HEMATOLOGICAL: No new bruising or bleeding. PSYCHIATRIC: Does have a history of depression and anxiety. Has not been sleeping well while here at the hospital. PHYSICAL EXAMINATION: VITAL SIGNS: Blood pressure 109/66, heart rate 94, temperature 98.1, respirations 20, and O2 saturation is 89% on 40% FiO2 on high flow. GENERAL: An alert, oriented, frail-appearing elderly female who is sitting up in the recliner in the intensive care unit. Does not appear to be in any acute distress, playing a game of cards with her son. HEENT: Normocephalic, atraumatic. Pupils are equal and reactive to light. Sclerae are anicteric. Conjunctivae pink. Tongue and mucous membranes are moist and pink. Dentition is adequate. CARDIOVASCULAR: Heart tones are irregularly irregular. I am not able to note a murmur. RESPIRATORY: Respirations are regular, unlabored at rest, diminished bilaterally. GASTROINTESTINAL: Abdomen is rounded and nontender. Bowel sounds are present. GENITOURINARY: Dowling catheter is intact with adequate amounts of yellow urine. MUSCULOSKELETAL: No significant joint deformities. Peripheral pulses are 1+ bilaterally with no clubbing, cyanosis, or edema. SKIN: Warm and dry. No unusual lesions or rashes. NEUROLOGICAL: Grossly intact. IMPRESSION AND PLAN: 1. Dyspnea. Continue on high-flow O2. 2. Frailty. 3. Code status. The patient is a full code. Does not have an advance directive or a living will on the chart, but her sons are present for conversation. Met with the patient's family for a family meeting with Dr. Vilchis, myself, nursing staff, and the patient's son and [id number]. During that family meeting, we discussed various options to include surgery versus MitraClip versus medical management versus hospice. All options were presented to family. The family was told that the patient is very high risk for any surgery let alone surgical procedure at this time. Did answer family's questions in regard to medical management and hospice services. Introduced the role of Palliative Care to the family. At this point, family is willing to consider their options and meet up again in the next couple of days with PATIENT'S NAME: AMADOR RACHEL [facility] AGE: 75 Y [address] ROOM: [place] [id number] [facility]: 08/30/2016 Consultation DISCHARGE DATE: FAMILY PHYSICIAN: PHYSICIAN, UNKNOWN ATTENDING PHYSICIAN: Jan Vilchis the rest of the family to discuss further decisions. I did also briefly meet with the patient and another son in the afternoon. The patient was alert and oriented, but was slow to respond to some of my questions and gave very brief answers. I am not certain that she has a very good grasp of what all is going on at this time, but it does not sound as though family is not ready for the patient to know the full extent of her diagnosis. Did discuss with family that it is important for her to know all of her options before she is expected to decide what she would want for medical care. The patient does state to me during my conversation though that she understands the risks with procedures and does not think that she wants anything further done, and she does state that her goal is to return home when able. Answered family's questions to the best of my ability. We will plan to follow up in the next couple of days for further goals of care conversation with both the patient and family. Total visit was 60 minutes, greater than 50% of this time was spent providing education and counseling. Thank you for allowing me to assist this patient and family. BEAU MOODY, MARTHA FOR MATT ABRAMS MD DLS/modl /[id number] CC: Jan Vilchis MD d: 09/05/16 1720 t: 09/15/16 1050, CONSULTATION REPORT
--- NOTE | ~2016-08-30 | OR ---
PATIENT'S NAME: WISLON [facility] AGE: 75 Y [address] ROOM: [place] [address] LOCATION: [facility] ADMIT DATE: 08/30/2016 OR/Procedure Report DISCHARGE DATE: FAMILY PHYSICIAN: PHYSICIAN, UNKNOWN ATTENDING PHYSICIAN: Jan Vilchis SURGEON: Jan Vilchis MD CERTIFIED OPHTHALMIC SURGICAL ASSISTANT: DATE OF PROCEDURE: 08/30/2016 INDICATIONS: Right lung collapse. PROCEDURE PERFORMED: Fiberoptic bronchoscopy with therapeutic aspiration. CONSENT: Risks and benefits of the procedure were discussed with the patient, including the risk of bleeding, infection, and pneumothorax. She agrees to proceed with the procedure. PROCEDURE IN DETAIL: After the informed consent, proper time-out was called by me and nursing staff. The patient was put to moderate sedation by Anesthesia, using ketamine, then Olympus bronchoscope was passed through the mouth into the tracheobronchial tree. The patient tolerated the procedure well. There were no immediate complications. FINDINGS: The vocal cords appeared normal, breathing and moving with breathing and phonation. The trachea appears normal in caliber. There is thick white secretions which was suctioned out, the lane is sharp, non splayed, the left mainstem is patent with no endobronchial lesions or secretions. The right left upper and lower lobe had very minimal secretions. At the left mainstem, was almost completely occluded with thick clear to white secretions, which were suctioned out. The right upper lobe was completely occluded with secretions, which was also suctioned out and multiple mucus plugs were pulled out. The right lower lobe and right middle lobe was completely occluded with thick white secretions, which was suctioned out. The right lung was washed out with minimal saline, and was suctioned out. The patient's bronchoscope was withdrawn. The patient tolerated the procedure well, there were no immediate complications. The chest x-ray postprocedure showed almost complete aeration of the right lung with a possible right pleural effusion. Thank you for allowing me to participate in the care of this patient. I will follow up with you. PATIENT'S NAME: WILSON [facility] AGE: 75 Y [address] ROOM: [place] [id number] LOCATION: GICU ADMIT DATE: 08/30/2016 OR/Procedure Report DISCHARGE DATE: FAMILY PHYSICIAN: PHYSICIAN, AGUSTIN ATTENDING PHYSICIAN: Jan Vilchis MD JOLENE CALDERÓN/talita /[id number] d: 08/30/16 2145 t: 09/01/16 1632, OPERATIVE SUMMARY
[~2016-08-30 13:30] MED LIST changes: +ARTIFICIAL TEAR15 ML OPHTH; +DALIRESP500 MCG PO; +XANAX0.5 MG PO
[2016-08-30 17:02] LABS: HEMOGLOBIN 9.5 g/dL (10.0-15.0); MCH 29.5 pg (27.0-34.0); MCV 98.8 fl (83.0-98.0); RBC 3.22 M/uL (3.50-5.50); RDW-CV 18.2 % (11.9-14.6); WBC 14.1 K/uL (4.0-11.0)
[2016-08-30 17:05] LABS: HEMATOCRIT 31.8 % (33.0-46.0); MCHC 29.9 gm/dL (32.0-36.5); PLATELET COUNT 376 K/uL (150-450)
[2016-08-30 17:18] LABS: ANION GAP 13.1 (10.0-19.0); CALCIUM 7.8 mg/dL (8.5-10.5); CREATININE 2.3 mg/dL (0.5-1.1); POTASSIUM 5.1 mMol/L (3.7-5.1); TOTAL BILIRUBIN 0.6 mg/dL (0.0-1.5); TOTAL PROTEIN 5.8 g/dL (6.0-8.4)
[2016-08-30 17:34] LABS: ABSOLUTE NEUTROPHIL CT (ANC) 7.9 K/uL (1.8-7.8); LYMPHOCYTE # 5.9 K/uL (0.8-4.0); LYMPHOCYTE % 42 %; MONOCYTE # 0.3 K/uL (0.0-1.0); SEGMENTED NEUTROPHIL # 7.9 K/uL (1.8-7.8); SEGMENTED NEUTROPHIL % 56 %
[2016-08-31 04:51] LABS: HEMOGLOBIN 9.4 g/dL (10.0-15.0)
[2016-08-31 05:02] LABS: INR - (THERAPEUTIC) 1.1 (0.9-1.1); PROTIME 11.4 SECONDS (9.6-11.1)
[2016-08-31 09:05] LABS: HEMATOCRIT 33.7 % (33.0-46.0); HEMOGLOBIN 9.9 g/dL (10.0-15.0); MCH 28.5 pg (27.0-34.0); MCHC 29.4 gm/dL (32.0-36.5); MCV 97.1 fl (83.0-98.0); MPV 10.6 fl (9.4-12.4); PLATELET COUNT 402 K/uL (150-450); RBC 3.47 M/uL (3.50-5.50); RDW-CV 18.4 % (11.9-14.6)
[2016-08-31 09:15] LABS: WBC 16.1 K/uL (4.0-11.0)
[2016-08-31 09:34] LABS: ALBUMIN 2.9 gm/dL (3.5-5.0); ANION GAP 11.5 (10.0-19.0); CALCIUM 7.7 mg/dL (8.5-10.5); CREATININE 2.4 mg/dL (0.5-1.1); POTASSIUM 4.5 mMol/L (3.7-5.1); TOTAL BILIRUBIN 0.6 mg/dL (0.0-1.5); TOTAL PROTEIN 6.3 g/dL (6.0-8.4)
[2016-08-31 09:59] LABS: BANDED NEUTROPHIL # 0.8 K/uL (0.0-0.1); BANDED NEUTROPHILS % 5 %; LYMPHOCYTE # 5.2 K/uL (0.8-4.0); LYMPHOCYTE % 32 %; SEGMENTED NEUTROPHIL # 9.2 K/uL (1.8-7.8); SEGMENTED NEUTROPHIL % 57 %
[2016-08-31 22:24] LABS: BILIRUBIN URINE NEGATIVE (NEGATIVE); BLOOD URINE 150 /UL (NEGATIVE); COLOR URINE COLORLESS (YELLOW); GLUCOSE URINE NEGATIVE (NEGATIVE); KETONE URINE NEGATIVE (NEGATIVE); LEUKOCYTES URINE NEGATIVE /UL (NEGATIVE); NITRITE URINE NEGATIVE (NEGATIVE); PROTEIN URINE 15 mg/dL (NEGATIVE); TURBIDITY URINE CLEAR (CLEAR); UROBILINOGEN URINE NORMAL (NORMAL)
[2016-08-31 22:31] LABS: BACTERIA URINE NEGATIVE (NEGATIVE); EPITHELIAL URINE 0-2 #/HPF (NEGATIVE); WBC URINE RARE #/HPF (NEGATIVE)
[2016-09-01 05:25] LABS: HEMATOCRIT 33.4 % (33.0-46.0); HEMOGLOBIN 9.9 g/dL (10.0-15.0); MCH 28.7 pg (27.0-34.0); MCHC 29.6 gm/dL (32.0-36.5); MCV 96.8 fl (83.0-98.0); PLATELET COUNT 406 K/uL (150-450); RBC 3.45 M/uL (3.50-5.50); RDW-CV 18.6 % (11.9-14.6); WBC 14.5 K/uL (4.0-11.0)
[2016-09-01 05:43] LABS: ANION GAP 11.5 (10.0-19.0); CALCIUM 7.9 mg/dL (8.5-10.5); CREATININE 2.2 mg/dL (0.5-1.1); POTASSIUM 4.5 mMol/L (3.7-5.1)
[2016-09-01 05:49] LABS: ABSOLUTE NEUTROPHIL CT (ANC) 9.1 K/uL (1.8-7.8); BANDED NEUTROPHIL # 0.3 K/uL (0.0-0.1); BANDED NEUTROPHILS % 2 %; LYMPHOCYTE # 5.4 K/uL (0.8-4.0); LYMPHOCYTE % 37 %; SEGMENTED NEUTROPHIL # 8.9 K/uL (1.8-7.8); SEGMENTED NEUTROPHIL % 61 %
[2016-09-01 17:13] LABS: CALCIUM 8.1 mg/dL (8.5-10.5); CREATININE 2.3 mg/dL (0.5-1.1); POTASSIUM 4.2 mMol/L (3.7-5.1)
[2016-09-01 17:14] LABS: ANION GAP 10.2 (10.0-19.0)
[2016-09-02 05:08] LABS: HEMATOCRIT 31.7 % (33.0-46.0); HEMOGLOBIN 9.6 g/dL (10.0-15.0); MCH 28.7 pg (27.0-34.0); MCHC 30.3 gm/dL (32.0-36.5); MCV 94.6 fl (83.0-98.0); MPV 10.7 fl (9.4-12.4); PLATELET COUNT 388 K/uL (150-450); RBC 3.35 M/uL (3.50-5.50); RDW-CV 18.6 % (11.9-14.6); WBC 12.3 K/uL (4.0-11.0)
[2016-09-02 05:22] LABS: ANION GAP 15.3 (10.0-19.0); CALCIUM 8.4 mg/dL (8.5-10.5); CREATININE 2.5 mg/dL (0.5-1.1); MAGNESIUM 2.4 mg/dL (1.3-2.6); POTASSIUM 4.3 mMol/L (3.7-5.1)
[2016-09-02 06:04] LABS: ABSOLUTE NEUTROPHIL CT (ANC) 5.2 K/uL (1.8-7.8); BANDED NEUTROPHIL # 0.2 K/uL (0.0-0.1); BANDED NEUTROPHILS % 2 %; LYMPHOCYTE % 57 %; MONOCYTE # 0.1 K/uL (0.0-1.0); SEGMENTED NEUTROPHIL # 4.9 K/uL (1.8-7.8); SEGMENTED NEUTROPHIL % 40 %
[2016-09-03 05:41] LABS: HEMOGLOBIN 9.2 g/dL (10.0-15.0); MCH 28.6 pg (27.0-34.0); MCHC 29.7 gm/dL (32.0-36.5); MCV 96.3 fl (83.0-98.0); PLATELET COUNT 368 K/uL (150-450); RBC 3.22 M/uL (3.50-5.50); RDW-CV 18.4 % (11.9-14.6); WBC 11.7 K/uL (4.0-11.0)
[2016-09-03 05:59] LABS: ANION GAP 12.7 (10.0-19.0); CALCIUM 8.3 mg/dL (8.5-10.5); CREATININE 2.4 mg/dL (0.5-1.1); MAGNESIUM 2.5 mg/dL (1.3-2.6); POTASSIUM 3.7 mMol/L (3.7-5.1)
[2016-09-03 06:15] LABS: LYMPHOCYTE # 6.2 K/uL (0.8-4.0); LYMPHOCYTE % 52 %; MONOCYTE # 0.5 K/uL (0.0-1.0); SEGMENTED NEUTROPHIL % 43 %
[2016-09-04 05:34] LABS: HEMATOCRIT 32.6 % (33.0-46.0); HEMOGLOBIN 9.7 g/dL (10.0-15.0); MCH 28.4 pg (27.0-34.0); MCHC 29.8 gm/dL (32.0-36.5); MCV 95.6 fl (83.0-98.0); MPV 10.6 fl (9.4-12.4); PLATELET COUNT 339 K/uL (150-450); RBC 3.41 M/uL (3.50-5.50); RDW-CV 18.3 % (11.9-14.6); WBC 12.2 K/uL (4.0-11.0)
[2016-09-04 05:47] LABS: CALCIUM 8.1 mg/dL (8.5-10.5); CREATININE 2.4 mg/dL (0.5-1.1); MAGNESIUM 2.5 mg/dL (1.3-2.6); POTASSIUM 3.7 mMol/L (3.7-5.1)
[2016-09-04 05:50] LABS: ANION GAP 12.7 (10.0-19.0)
[2016-09-04 06:05] LABS: ABSOLUTE NEUTROPHIL CT (ANC) 3.7 K/uL (1.8-7.8); LYMPHOCYTE # 8.2 K/uL (0.8-4.0); LYMPHOCYTE % 65 %; MONOCYTE # 0.4 K/uL (0.0-1.0); SEGMENTED NEUTROPHIL # 3.7 K/uL (1.8-7.8); SEGMENTED NEUTROPHIL % 30 %
[2016-09-05 04:07] LABS: HEMATOCRIT 34.3 % (33.0-46.0); HEMOGLOBIN 10.2 g/dL (10.0-15.0); MCH 28.6 pg (27.0-34.0); MCHC 29.7 gm/dL (32.0-36.5); MCV 96.1 fl (83.0-98.0); MPV 11.2 fl (9.4-12.4); PLATELET COUNT 322 K/uL (150-450); RBC 3.57 M/uL (3.50-5.50); RDW-CV 18.1 % (11.9-14.6); WBC 12.9 K/uL (4.0-11.0)
[2016-09-05 04:25] LABS: CALCIUM 8.5 mg/dL (8.5-10.5); CREATININE 2.2 mg/dL (0.5-1.1); POTASSIUM 3.8 mMol/L (3.7-5.1)
[2016-09-05 04:28] LABS: ANION GAP 13.8 (10.0-19.0)
[2016-09-05 05:53] LABS: ABSOLUTE NEUTROPHIL CT (ANC) 5.6 K/uL (1.8-7.8); LYMPHOCYTE # 7.1 K/uL (0.8-4.0); LYMPHOCYTE % 55 %; MONOCYTE # 0.3 K/uL (0.0-1.0); SEGMENTED NEUTROPHIL # 5.6 K/uL (1.8-7.8); SEGMENTED NEUTROPHIL % 43 %
[2016-09-06 05:57] LABS: HEMATOCRIT 33.7 % (33.0-46.0); HEMOGLOBIN 9.9 g/dL (10.0-15.0)
[2016-09-07 04:10] LABS: HEMATOCRIT 33.6 % (33.0-46.0); HEMOGLOBIN 9.7 g/dL (10.0-15.0); MCH 28.4 pg (27.0-34.0); MCHC 28.9 gm/dL (32.0-36.5); MCV 98.2 fl (83.0-98.0); MPV 10.7 fl (9.4-12.4); RBC 3.42 M/uL (3.50-5.50); RDW-CV 18.2 % (11.9-14.6)
[2016-09-07 04:11] LABS: WBC 19.6 K/uL (4.0-11.0)
[2016-09-07 04:25] LABS: CALCIUM 8.4 mg/dL (8.5-10.5); CREATININE 1.9 mg/dL (0.5-1.1); POTASSIUM 4.1 mMol/L (3.7-5.1)
[2016-09-07 04:27] LABS: ANION GAP 11.1 (10.0-19.0)
[2016-09-08 06:16] LABS: HEMATOCRIT 32.9 % (33.0-46.0); HEMOGLOBIN 9.4 g/dL (10.0-15.0); MCH 28.4 pg (27.0-34.0); MCHC 28.6 gm/dL (32.0-36.5); MCV 99.4 fl (83.0-98.0); MPV 11.2 fl (9.4-12.4); RBC 3.31 M/uL (3.50-5.50); WBC 15.4 K/uL (4.0-11.0)
[2016-09-08 06:17] LABS: PLATELET COUNT 166 K/uL (150-450)
[2016-09-08 06:48] LABS: CALCIUM 8.4 mg/dL (8.5-10.5); CREATININE 1.6 mg/dL (0.5-1.1)
[2016-09-08 07:05] LABS: ABSOLUTE NEUTROPHIL CT (ANC) 6.8 K/uL (1.8-7.8); LYMPHOCYTE # 8.6 K/uL (0.8-4.0); LYMPHOCYTE % 56 %; SEGMENTED NEUTROPHIL # 6.8 K/uL (1.8-7.8); SEGMENTED NEUTROPHIL % 44 %
[2016-09-09 06:40] LABS: CALCIUM 8.3 mg/dL (8.5-10.5); CREATININE 1.5 mg/dL (0.5-1.1); PHOSPHORUS 3.3 mg/dL (2.5-4.9); POTASSIUM 3.6 mMol/L (3.7-5.1)
[2016-09-09 06:41] LABS: ANION GAP 10.6 (10.0-19.0); MAGNESIUM 2.8 mg/dL (1.3-2.6)
[2016-09-10 06:23] LABS: ALBUMIN 3.2 gm/dL (3.5-5.0); CALCIUM 8.5 mg/dL (8.5-10.5); CREATININE 1.4 mg/dL (0.5-1.1); PHOSPHORUS 3.2 mg/dL (2.5-4.9); POTASSIUM 3.9 mMol/L (3.7-5.1)
[2016-09-10 06:28] LABS: ANION GAP 10.9 (10.0-19.0)
[2016-09-11 04:45] LABS: HEMOGLOBIN 9.5 g/dL (10.0-15.0); MCH 28.4 pg (27.0-34.0); MCHC 28.8 gm/dL (32.0-36.5); MCV 98.8 fl (83.0-98.0); MPV 12.3 fl (9.4-12.4); RBC 3.34 M/uL (3.50-5.50); RDW-CV 17.8 % (11.9-14.6); WBC 15.5 K/uL (4.0-11.0)
[2016-09-11 04:48] LABS: PLATELET COUNT 126 K/uL (150-450)
[2016-09-11 04:57] LABS: CALCIUM 8.5 mg/dL (8.5-10.5); CREATININE 1.4 mg/dL (0.5-1.1); MAGNESIUM 2.5 mg/dL (1.3-2.6); PHOSPHORUS 3.1 mg/dL (2.5-4.9); POTASSIUM 4.2 mMol/L (3.7-5.1)
[2016-09-11 04:58] LABS: ANION GAP 6.2 (10.0-19.0)
[2016-09-11 05:13] LABS: BANDED NEUTROPHIL # 0.5 K/uL (0.0-0.1); BANDED NEUTROPHILS % 3 %; LYMPHOCYTE # 6.5 K/uL (0.8-4.0); LYMPHOCYTE % 42 %; SEGMENTED NEUTROPHIL # 8.5 K/uL (1.8-7.8); SEGMENTED NEUTROPHIL % 55 %
[2016-09-12 06:48] LABS: CALCIUM 8.5 mg/dL (8.5-10.5); CREATININE 1.4 mg/dL (0.5-1.1); POTASSIUM 4.8 mMol/L (3.7-5.1)
[2016-09-12 06:49] LABS: ANION GAP 9.8 (10.0-19.0)
== END 2016-09-12 14:50 | disposition swing bed (61) | DRG 291 ==
LOC: GICU 14:15 → GPCU 14:15 → GICU 09-03 11:00 → GPCU 09-04 11:04
PROVIDERS: Hospitalist; Internal Medicine; Internal Medicine Gastroenterology; Internal Medicine Interventional Cardiology; Nurse Practitioner; ADMIT Internal Medicine Critical Care Medicine
DX: I50.43 Acute on chronic combined systolic (congestive) and diastolic (congestive) heart failure (principal); R57.0 Cardiogenic shock; J96.21 Acute and chronic respiratory failure with hypoxia; J18.9 Pneumonia, unspecified organism; T17.890A Other foreign object in other parts of respiratory tract causing asphyxiation, initial encounter; E87.3 Alkalosis; N18.4 Chronic kidney disease, stage 4 (severe); E87.0 Hyperosmolality and hypernatremia; N17.9 Acute kidney failure, unspecified; J90 Pleural effusion, not elsewhere classified; J98.19 Other pulmonary collapse; J44.0 Chronic obstructive pulmonary disease with (acute) lower respiratory infection; J44.1 Chronic obstructive pulmonary disease with (acute) exacerbation; C91.10 Chronic lymphocytic leukemia of B-cell type not having achieved remission; D50.0 Iron deficiency anemia secondary to blood loss (chronic); I27.2 Other secondary pulmonary hypertension; I48.2 Chronic atrial fibrillation; I34.0 Nonrheumatic mitral (valve) insufficiency; Q27.33 Arteriovenous malformation of digestive system vessel; R45.1 Restlessness and agitation; Z66 Do not resuscitate; F41.9 Anxiety disorder, unspecified; R06.00 Dyspnea, unspecified; F32.9 Major depressive disorder, single episode, unspecified; E11.9 Type 2 diabetes mellitus without complications; Z87.891 Personal history of nicotine dependence
CPT/HCPCS: J1644; J1956; J2270; J2370; J2543; J2920; J2930; J7040; J7050; J7060; J7612